=== PATIENT | female | born 1980 | race Caucasian/White ===

== ENCOUNTER → 2018-03-21 16:40 | Outpatient (CLI) | payer OTHER, SELFPAY | PROVIDERS: Family Provider Internal Medicine; PCP Internal Medicine; Referring Provider Obstetrics & Gynecology; Visit Provider Obstetrics & Gynecology | DX: Z12.4 Encounter for screening for malignant neoplasm of cervix (principal) | CPT/HCPCS: 88175; G0145 ==

== ENCOUNTER → 2018-05-18 12:02 | Outpatient (CLI) | payer OTHER, SELFPAY ==
--- OUTSIDE RECORDS SUMMARY | 2018-07-04 07:18 | XMS RPT_ITS ---
:1980 Author Organization [facility] Support Name Relationship Address Phone CODY BAILEY Unavailable [address] + [place] [id number] SIMON DENNIS Unavailable [address] + [address]available [address] + [place] [address] CODY BAILEY Unavailable [address] + [place] [id number] SIMON DENNIS Unavailable [address] + [address]available [address] + [place] [address] CODY BAILEY Unavailable [address] + [place] [id number] SIMON DENNIS Unavailable [address] + [address] Unavailable [address] + [place] [address] CODY BAILEY Unavailable [address] + [place] [id number] SIMON DENNIS Unavailable [address] + [address] Unavailable [address] + [place] [address] SIMON DENNIS Unavailable [address] + [address] Unavailable [address] + [place] [address] SIMON DENNIS Unavailable [address] + [address] Unavailable [address] + [place] [address] MILAN SEXTON Unavailable . + [place] [address] [facility] Unavailable [address] + [place] [address] Care Team Providers Name Role Phone Belkys, Enma Attending Unavailable Elmer Russell Primary Care Unavailable Marcanthony, Shanelle Attending Unavailable Marcanthony, Shanelle Referring Unavailable ZARRABI, ENMA Primary Care Unavailable Marcanthony, Shanelle Attending Unavailable Marcanthony, Shanelle Referring Unavailable ZARRABI, ENMA Primary Care Unavailable Marcanthony, Shanelle Consulting Unavailable Marcanthony, Shanelle Attending Unavailable ASSESSMENT, HEALTH RISK Attending Unavailable ASSESSMENT, HEALTH RISK Referring Unavailable ZARRABI, ENMA Primary Care Unavailable Marcanthony, Shanelle Attending Unavailable Marcanthony, Shanelle Referring Unavailable ZARRABI, ENMA Primary Care Unavailable Mariangel Jordan Attending Unavailable ZARRABI, ENMA Referring Unavailable Marcanthony, Shanelle Attending Unavailable Marcanthony, Shanelle Referring Unavailable ZARRABI, ENMA Primary Care Unavailable PROBLEMS PROBLEMS DATE TYPE CONDITION / CODE ATTENDING STATUS SOURCE 05/25/2018 Unknown G89.18 - Other acute Herber, Active [place] postprocedural pain [facility] / G89.18(ICD-10) Hospital Repository 03/21/2018 Unknown Z12.4 - Encounter Herber Active [place] for screening for [facility] malignant neoplasm Hospital of cervix / Repository Z12.4(ICD-10) 03/21/2018 Unknown Z12.31 - Encounter Herber Active [place] for screening [facility] mammogram for Hospital malignant neoplasm Repository of breast / Z12.31(ICD-10) 03/21/2018 Unknown Z01.411 - Encounter Herber Active [place] for gynecological [facility] examination Hospital (general) (routine) Repository with abnormal findings / Z01.411(ICD-10) 03/21/2018 Unknown Z68.34 - Body mass Herber Active [place] index (BMI) [facility] 34.0-34.9, adult / Hospital Z68.34(ICD-10) Repository PROCEDURES PROCEDURES No Procedure Records FoundRESULTS RESULTS ANTIQUER OFFICE VISIT Observed: 06/08/2018 Status: F Source: BERTHA REPORT 10:14 [facility] REPOSITORY [facility] [address] [place] [address] OFFICE VISIT Date of Service: 06/08/18 MR#: [id number] Acct: [id number] Name: MARVA SEXTON Rep #: [id number] : 1980 Provider: MARCELO Jordan Age/Sex: 38/F Location: [facility] Status: Signed Intake Vital Signs06/08/18 Body Mass Index (BMI) 34.0 06/08/18 Weight: 200 lb 4 oz 06/08/18 Blood Pressure 112/68 Intake Visit Reasons: 2 WK POST OP Hand Carver Required: No Is patient in pain?: No Allergies Penicillins Allergy (Verified 06/08/18 09:58) Unknown Medications Naproxen [Naprosyn] 250 - 500 mg PO Q8H PRN PRN #30 tab 05/25/18 [Rx Confirmed 06/08/18] Is last menstrual period known: No Post menopausal: No Patient : No : No PFSH Medical History Abnormal Pap smear of cervix (Acute) Surgical History H/O LEEP (Acute 2002) History of conization of cervix (Acute 2003) Hx of cholecystectomy (Acute 2008) Family History Father TIA (transient ischemic attack) Hypertension Mother Cancer lung Brother Heart disease Social History adopted: No household members: children housing: house number of children: 1 current occupational status: employed current occupation: [employer] current occupational exposures/hazards: Yes pets and animals: No history of recent travel: No Smoking Status: Former smoker second hand exposure: No alcohol intake: current alcohol intake frequency: holidays/special occasions only substance use type: does not use seatbelt use: always do you feel safe at home: Yes additional social history: boyfriend- Cody HPI 2 WK POST OP: Details: MARVA SEXTON is a 38 year old who presents for 2 week post op BTO 05/2018 with . Doing well. No issues with bowel, bladder habits. No pain Pregancy History 1 Elective abortions Hx Para 1 Spontaneous abortions Past Pregnancies Del. DatName GA/WeeksOutcome [facility] LgAnesthesD LocaProviderFOB e ht en th ia tn Unknown 12/13/19 02- Ridge y Exam Const General: cooperative, no acute distress Nutritional Appearance: well nourished Orientation: oriented x3 GI Palpation: soft, nontender, other (incisions healed. Slight ecchymotic just below umbilicus) Assessment AND Plan Problems 1. Postop check Z09 Plan Routine care Return to work letter RTO 4 weeks Coding Level of Care Code No Charge Diagnoses Postop check Z09 06/08/18 1014 <Electronically signed by Mariangel IDCKERSON> Date Mariangel DICKERSON Cosigner Signature: Date (if applicable) CC: OPERATIVE REPORT Observed: 05/25/2018 Status: F Source: [place] 8:09 AM [facility] REPOSITORY [facility] Medical Records Department [address] [place] [id number] Operative Report 05/25/18 0734 MR#: [id number] Acct: [id number] Name: MARVA SEXTON April Rep #: [id number] : 1980 38 From: Shanelle Craven MD PCP: ENMA RIZVI Status: REG [facility] Y Location: [place] [address] Problem List (1) Sterilization Status: Acute Report of Operation Date of Procedure: 05/25/18 Pre-Operative Diagnosis: sterilization Post-Operative Diagnosis: same Surgery/Procedure Performed:: laparoscopic bilateral salpingectomy Description of Surgical Findings:: nl uterus tubes ovaries glass technologist: Natalie Gayle Type of Anesthesia:: General Special Medications: none Specimen's removed: tubes Drains: calderon Estimated Blood Loss (mL): minimal Fluids Replaced: crystalloid Description of Procedure: Patient was taken in the operating room and was placed under general anesthesia was prepped and draped in normal sterile fashion in the dorsal lithotomy position. Bladder was drained of clear urine and SCDs were on preoperatively. Uterus was sounded and a uterine manipulator was placed after dilating. Attention was then paid to the abdominal portion of the procedure and the umbilicus was elevated with towel clamps and injected with Marcaine and after a 5 mm incision was made and the Veress needle was entered into the abdomen confirmed to be intra-abdominal with a low opening pressure of less than 5 mmHg. Abdomen was insufflated with CO2 gas and a 5 mm optical trocar was placed under direct visualization. A left lower quadrant 5 mm port and a 5 mm port suprapubically replaced under direct visualization. Uterus was well visualized and bilateral fallopian tubes identified and bilateral tubes were elevated and transecting across the mesosalpinx and the attachment to the uterine corpus bilaterally the tubes were removed without complication. Excellent hemostasis was noted. Fallopian tubes were removed through the lower port sites without complication. Liver and upper abdomen were visualized notably within normal limits and no other gross abnormalities were seen in the abdomen. All instruments removed from the abdomen after gas was desufflated. Port sites were closed with 3-0 Monocryl Steri's and op sites were applied. All instruments removed from the vagina and patient was awoken and taken recovery in stable condition. Grafts/Implants Used: none - Complications none - Admit VTE Documentation VTE Present on Admission: No 05/25/18 0809 <Electronically signed by Shanelle Craven MD> Date Shanelle Craven MD CC: ENMA RIZVI; Shanelle Craven MD Signed DISCHARGE INSTRUCTION Observed: 05/25/2018 Status: F Source: BERTHA 7:49 AM [facility] REPOSITORY [facility] Medical Records Department [address] [place] [address] Instructions for Home/Discharge Instructions 05/25/18 0749 MR#: [id number] Acct: [id number] Name: MARVA SEXTON Rep #: [id number] : 1980 38 From: Shanelle Craven MD PCP: ENMA RIZVI Status: REG [facility] Discharge Diet: No Restrictions - Increase fluid intake for the next 48 hours. Discharge Activity: Return to Normal Activity, May Drive - when you are no longer taking narcotic pain medications., May Shower, May Take a Tub Bath - in 7 days Additional Activity Instructions:: Ambulate often the next week after surgery. Nothing in the vagina for 5 days. Call your doctor if your incision/area has: Continuous Slow Oozing, Sudden Increased Bleeding, Increased Pain/ Swelling, Increased Redness, Foul Smelling Discharge Call your doctor if you observe: Fever of 101 or Higher Allergies/Adverse Reactions: Allergies Penicillins Allergy (Verified 05/18/18 10:08) Unknown Medications to take at Discharge Naproxen [Naprosyn] 250 - 500 mg PO Q8H PRN PRN #30 tablet 05/25/18 Oxycodone HCl/Acetaminophen [Percocet 5-325] 1 - 2 tablet PO Q4H PRN PRN 7 Days #15 tablet 05/25/18 The following prescriptions were given: Oxycodone HCl/Acetaminophen [Percocet 5-325] 1 - 2 tablet PO Q4H PRN PRN 7 Days #15 tablet PRN Reason: Pain Naproxen [Naprosyn] 250 - 500 mg PO Q8H PRN PRN #30 tablet PRN Reason: MILD PAIN Primary Care Physician: Enma Rizvi [Primary Care Provider] - Test Results: Test results from this visit will be discussed in further detail at your follow-up appointment, if applicable. Please Follow Up With: Shanelle Craven MD - [phone] 05/25/18 0749 <Electronically signed by Shanelle Craven MD> Date Shanelle Craven MD CC: ENMA RIZVI HISTORY AND PHYSICAL Observed: 05/25/2018 Status: F Source: [place] EXAM 7:33 AM [facility] REPOSITORY [facility] Medical Records Department [address] [place] [address] History and Physical 05/25/18 0624 MR#: [id number] Acct: [id number] Name: MARVA SEXTON Rep #: [id number] : 1980 38 From: Shanelle Craven MD PCP: ENMA RIZVI Status: REG [facility] Y Location: [place] [address] Problem List (1) Sterilization Status: Acute History of Present Illness Date of Admission: 05/25/18 The patient is a 38 year old F desires sterilization. Past Medical History Medical History: Medical History (Last Reviewed 03/21/18 @ 10:18 by Yesenia Lzi) Abnormal Pap smear of cervix R87.619 Allergies Penicillins Allergy (Verified 05/18/18 10:08) Unknown Home Medications: Ambulatory Orders Medication Instructions Recorded NK 05/18/18 Surgical History: Surgical History (Last Reviewed 03/21/18 @ 10:18 by Yesenia Liz) H/O LEEP Onset Date: 2002 Z98.0 History of conization of cervix Onset Date: 2003 Z98. Hx of cholecystectomy Onset Date: 2008 Z90.49 Smoking Status: Former smoker Tobacco Use: Non-smoker Review of Systems Constitutional: Denies: Fever, Malaise Eyes: Denies: Blurred vision, Vision Change HEENT: Denies: Head Aches, Visual Changes Cardiovascular: Denies: Chest Pain, Palpitations Respiratory: Denies: Cough, Shortness of Breath, Wheezing Gastrointestinal: Denies: Abdominal Pain, Diarrhea, Nausea, Vomiting Genitourinary: Denies: Dysuria, Hematuria Musculoskeletal: Denies: Joint Pain, Muscle pain Skin: Denies: Lesions, Rash Neurological: Denies: Blurred vision, Focal weakness, Headaches Psychiatric: Denies: Anxiety, Depression Endocrine: Denies: Heat/ Cold Intolerance Hematologic/ Lymphatic: Denies: Easy Bruising, Easy Bleeding VTE Information - Inpt Only VTE Present on Admission: No Patient Problems: Active and Suspected Problems (Last Reviewed 03/21/18 @ 10:18 by Yesenia Liz) Sterilization (Acute) - Physical Exam General: Alert, Oriented x3, Cooperative HEENT: Atraumatic, PERRLA, EOMI, Normocephalic Neck: Supple, No JVD, Negative Carotid Bruits Lungs: Clear to auscultation, Normal air movement Cardiovascular: Regular rate, No murmurs Abdomen: Bowel Sounds Present, Soft, Non Tender Extremities: No edema, Capillary Refill Less than 3 Seconds Skin: No rashes, No breakdown Musculoskeletal: No Tenderness to Palpation of Joints or Extremities Neurological: Cranial nerves II-XII grossly intact Psych/Mental Status: Normal Affect, Appropriate Laboratory Tests Past 24 Hrs Urine Test Negative Assessment/Plan All Active Problems (Last Reviewed 03/21/18 @ 10:18 by Yesenia Liz) Sterilization (Acute) 38 yo desires sterilization plan laparoscopic bilateral salpingectomy. discussed surgical risks including risks of anesthesia, infection, bleeding, injury to bowel, bladder or blood vessels, and patient wishes to proceed with surgery. UPDATE- I have seen the patient and performed any clinically relevant updates to the history and physical exam. Shanelle Craven MD 05/25/18 0733 <Electronically signed by Shanelle Craven MD> Date Shanelle Craven MD Cosigner Signature: Date (if applicable) CC: ENMA RIZVI; Shanelle Craven MD Signed FALLOPIAN TUBES/STERILIZATION Observed: 05/25/2018 Status: F Source: [place] 7:30 AM [facility] REPOSITORY Patient: MARVA SEXTON : 1980 (38/F) Acct Num: [id number] Phys: Shanelle Craven MD Unit Num: [id number] Loc: [facility] Specimen: [id number] Received: 05/25/18919 Spec Type: FALL TUBES TISSUES 1 TISSUES: Fallopian tube GROSS DESCRIPTION Received is one container labeled with the patient's name and designated bilateral fallopian tubes. The specimen consists of two fallopian tubes with an average length of 7 cm and has an average diameter of 0.6 cm. Both fallopian tubes have normal fimbriated ends. No mass lesions are identified. Cruise Consultant sections are submitted in two cassettes as follows: 1 - one fallopian tube, 2 - the other fallopian tube. / AM:ilir 05/25/18 TC:4 CPT: 25460 x2 HEADER OPERATION: Laparoscopic salpingectomy PRE-OP DIAGNOSIS: Patient desires sterilization TISSUE SUBMITTED: Bilateral fallopian tubes MICROSCOPIC DESCRIPTION Slides are reviewed. MICROSCOPIC DIAGNOSIS Bilateral fallopian tubes, salpingectomy: Bilateral fallopian tubes including fimbrial ends, no pathologic diagnosis. SJ:ilir 05/26/18 Signed Aniceto Gonzalez MD 05/26/18 <signature on file> Performed By: #### PFALS #### [facility] [address] [place], [place], [address] TYPE AND SCREEN Collected: 05/25/2018 Status: F Source: BERTHA 6:00 AM [facility] REPOSITORY Order Comment: Reason for Type AND Screen/Red Cells: SURGERY TYPE CODE TESTS RESULT OUT OF RANGE REFERENCE UNITS LAB B10.0800 O Normal BLOOD TYPE GEL NEGATIVE LAB B100.4000 Normal Antibody NEGATIVE Screen Performed By: #### B101.7450 #### [facility] [address] [place], [place], [address] ,URINE Collected: 05/25/2018 Status: F Source: BERTHA 5:58 AM [facility] REPOSITORY Order Comment: Reason for Laboratory Test PREOP TYPE CODE TESTS RESULT OUT OF REFERENCE UNITS RANGE LAB L400.8000 Negative Normal HCGUQUAL Negative Result Comment: Very dilute urine specimens, as indicated by a low specific gravity, may not contain employee relations representative levels of hCG. If is still suspected, a first morning urine specimen should be collected 48 hours later and tested. Performed By: #### L400.7600 #### [facility] [address] [place], [address] CBC-COMPLETE BLOOD CNT Collected: 05/18/2018 Status: F Source: BERTHA NO DIFF 12:30 PM [facility] REPOSITORY TYPE CODE TESTS RESULT OUT OF RANGE REFERENCE UNITS LAB L100.1000 4.4-11.0 K/mm3 Normal WBC 7.4 LAB L100.1200 4.2-5.4 M/mm3 Normal RBC 4.62 LAB L100.1300 12.0-15.0 g/dl Normal HGB 13.1 LAB L100.1400 37-47 % Normal HCT 40.1 LAB L100.1500 81-99 fL Normal MCV 86.8 LAB L100.1600 27.0-32.0 pg Normal MCH 28.4 LAB L100.1700 32-36 g/gl Normal MCHC 32.7 LAB L100.1810 11.6-14.6 % Normal RDW CV 13.2 LAB L100.1820 35.1-43.9 fl Normal RDW SD 41.2 LAB L100.1900 150-450 K/mm3 Normal PLT 324 LAB L100.2000 6.2-12.0 fl Normal MPV 9.5 Performed By: #### L100.0500 #### [facility] [address] [place], [place], [id number] CBC-COMPLETE BLOOD CNT Collected: 05/18/2018 Status: F Source: BERTHA NO DIFF 12:30 PM [facility] REPOSITORY TYPE CODE TESTS RESULT OUT OF RANGE REFERENCE UNITS LAB L100.1000 4.4-11.0 K/mm3 Normal WBC 7.4 LAB L100.1200 4.2-5.4 M/mm3 Normal RBC 4.62 LAB L100.1300 12.0-15.0 g/dl Normal HGB 13.1 LAB L100.1400 37-47 % Normal HCT 40.1 LAB L100.1500 81-99 fL Normal MCV 86.8 LAB L100.1600 27.0-32.0 pg Normal MCH 28.4 LAB L100.1700 32-36 g/gl Normal MCHC 32.7 LAB L100.1810 11.6-14.6 % Normal RDW CV 13.2 LAB L100.1820 35.1-43.9 fl Normal RDW SD 41.2 LAB L100.1900 150-450 K/mm3 Normal PLT 324 LAB L100.2000 6.2-12.0 fl Normal MPV 9.5 Performed By: #### L100.0500 #### [facility] [address] [place], [place], [id number] ANTIQUER OFFICE VISIT Observed: 03/21/2018 Status: F Source: BERTHA REPORT 11:08 AM [facility] [address] [place] [address] OFFICE VISIT Date of Service: 03/21/18 MR#: [id number] Acct: [id number] Name: MARVA SEXTON Rep #: [id number] : 1980 Provider: Shanelle Craven MD Age/Sex: 38/F Location: [facility] Status: Signed Intake Vital Signs03/21/18 Height 5 ft 4 in 03/21/18 Weight: 202 lb 03/21/18 Body Mass Index (BMI) 34.7 03/21/18 Blood Pressure 112/68 Intake Visit Reasons: NEW annual, discuss tubal ligation Hand Carver Required: No Is patient in pain?: No Allergies Penicillins Allergy (Verified 03/21/18 10:11) Unknown Medications NK 03/21/18 [History Confirmed 03/21/18] Is last menstrual period known: Yes Last Menstral Period: 03/10/18 Post menopausal: No Patient : No : No [facility] Medical History Abnormal Pap smear of cervix (Acute) Surgical History H/O LEEP (Acute 2002) History of conization of cervix (Acute 2003) Hx of cholecystectomy (Acute 2008) Family History Father TIA (transient ischemic attack) Hypertension Mother Cancer lung Brother Heart disease Social History adopted: No household members: children housing: house number of children: 1 current occupational status: employed current occupation: [employer] current occupational exposures/hazards: Yes pets and animals: No history of recent travel: No Smoking Status: Current every day smoker second hand exposure: No alcohol intake: current alcohol intake frequency: holidays/special occasions only substance use type: does not use seatbelt use: always do you feel safe at home: Yes additional social history: boyfriend- Cody Pregancy History 1 Elective abortions Hx Para 1 Spontaneous abortions Past Pregnancies Del. DatName GA/WeeksOutcome Route [facility] [place] LgAnesthesDel LocaProviderFOB e ht en ia tn Unknown 12/13/19 02- Ridge y HPI NEW annual, discuss tubal ligation: Details: MARVA SEXTON is a 38 year old who presents for annual exam. she is wanting permanent control. she has used nuvaring in the past. Last PAP: 2016 normal History of abnormal PAP: leep [address] parker Female Reproductive History Last Menstral Period: 03/10/18 Cycle Length: 21-35 Bleeding Duration: 5 Control Method: condoms Questions: Metorrhagia: No, Sexually active: Yes, Dyspareunia: No, PCB: No Menopausal Symptoms: No hot flashes, No night sweats, No weight change, No mood changes, No difficulty concentrating, No sleep problems, No change in libido ROS Const Constitutional: Denies night sweats Cardio Card: Denies chest pain Resp Resp: Denies dyspnea or cough GI GI: Reports as per HPI; denies bloating, abdominal pain, constipation, vomiting or nausea : Denies hot flashes or nipple discharge Skin Skin/Breast: Denies breast pain, breast skin changes, nipple discharge, breast lump or changing lesions Psych Psych: Denies difficulty concentrating or change in sex drive Exam Const General: cooperative, healthy appearing, comfortable, no acute distress, well developed, well groomed [facility] Head: normal to inspection, normocephalic Ears: hearing grossly normal bilaterally, external ears normal Nose: external nose normal Face and sinus: normal facial exam Neck Neck: normal visual inspection, full ROM, no lymphadenopathy Thyroid: thyroid normal Chest Chest palpation AND inspection: normal inspection of the chest Breast inspection: normal inspection of the breasts, normal inspection of the axillae Breast palpation: normal palpation of the breasts, normal palpation of the axillae, no axillary lymphadenopathy Resp Effort AND Inspection: normal respiratory effort GI Inspection: normal to inspection, non-distended Palpation: no guarding, soft, no hepatosplenomegaly General: bladder normal to palpation External Female Exam: normal external appearance, normal appearance of the urethra, no lesions Urethra: normal appearance of the urethra, normal palpation Speculum Exam - Vagina: normal appearance of the vagina, normal vaginal discharge Speculum Exam - Cervix: normal appearance of the cervix, no cervical discharge, no lesions, nontender Bimanual Exam- Vagina AND Uterus: No cervical tenderness, normal bimanual exam, uterine size normal, bladder normal to palpation, uterine mobility normal, uterine consistency normal, uterus non-tender, no cervical motion tenderness Bimanual Exam- Adnexa, other: normal adnexae, no adnexal masses, adnexae non-tender Skin General: no rashes or lesions noted Neuro General: alert, moves all extremities, no focal motor deficits Extrem General: no pedal edema, normal to inspection Psych Appearance: grossly normal Mental Status: mental status grossly normal Affect: normal affect Speech and Movement: speech and movement normal Attitude: cooperative Assessment AND Plan Problems 1. Encounter for gynecological examination with abnormal finding Z01.411 2. BMI 34.0-34.9,adult Z68.34 Plan Cervical cancer screenin normal Breast cancer screening: clinical start mamms next year STD prevention and contraceptive options including their risks, benefits, and alternatives were reviewed with the patient and she chooses: tubal ligation Encouraged maintenance of a healthy weight and active lifestyle and handout given. Calcium/vitamin D recommendations provided. Annual exam handout including recommendations for good health guidelines and basic screening information given. Problem list up to date, see problem list details for any additional plan information. follow up in one year for annual health maintenance exam or sooner if needed. Orders Orders: Coding Level of Care Code Off vis,new,prev 18-39yrs Diagnoses Encounter for gynecological examination with abnormal finding Z01.411 Gynecological examination findings: abnormal findings PRESENT BMI 34.0-34.9,adult Z68.34 03/21/18 1108 <Electronically signed by Shanelle Craven MD> Date Shanelle Craven MD Cosigner Signature: Date (if applicable) CC: PAP IG HPV APTIMA Collected: 03/21/2018 Status: F Source: BERTHA ,45 10:30 AM [facility] REPOSITORY Order Comment: CYTOLOGY INFORMATION: - CLINICAL INFORMATION: - DATE LMP/MENOPAUSE: 03/10/18 LMP - COLLECTION VIAL: Thin Prep Vial - SALES NEGOTIATOR SOURCE: CERVICAL - COLLECTION TECHNIQUE: CX BROOM ONLY Specimen Comment: [id number] Specimen Comment: Source.............Cervix Specimen Comment: LMP / Prev Treat...NEK=[id number] Specimen Comment: No. of containers..01 ThinPrep Vial TYPE CODE TESTS RESULT OUT OF RANGE REFERENCE UNITS LAB L7400.0800 . Normal DIAGN Comment Result Comment: UNSATISFACTORY FOR EVALUATION. LAB L7400.0900 . Normal ADEQ Comment Result Comment: Specimen processed and examined but unsatisfactory for evaluation of epithelial abnormality because of insufficient cellularity. LAB L7400.1300 . Normal RECOMM Comment Result Comment: Suggest follow up as clinically appropriate. LAB L7400.1400 . Normal PERFORM Comment Result Comment: Mago Barlow, Teletypewriter Installer (ASC) LAB L7400.1500 . Normal QC Comment REV Result Comment: Joy Ku, Supervisory Teletypewriter Installer (ASC) LAB L7400.2575 . Normal Test not TEST METHOD performed Result Comment: The Thin Prep(R) Implementation Coordinator was unable to read this specimen. Therefore a manual review was performed. LAB L7400.2600 . Normal . COMM LAB L7400.2700 . Normal PAPSMR Comment Result Comment: The Pap smear is a screening test designed to aid in the detection of premalignant and malignant conditions of the uterine cervix. It is not a diagnostic procedure and should not be used as the sole means of detecting cervical cancer. Both false-positive and false-negative reports do occur. LAB L7400.2760 Negative Normal HPV APTIMA, Negative HR Result Comment: This test detects fourteen high-risk HPV types (16/18/31/33/35/39/45/ 51/52/56/58/59/66/68) without differentiation. Performed at: [address] [id number] Order Manager: Regina Reed MD, Phone: [phone] Performed at: =[address] [id number] Order Manager: Regina Reed MD, Phone: [phone] Performed By: #### L7400.0280 #### [facility] (refer to report for specific site) refer to report for address and phone number URINALYSIS, EMPLOYEE Collected: 02/14/2018 Status: F Source: [place] 11:07 AM [facility] REPOSITORY TYPE CODE TESTS RESULT OUT OF RANGE REFERENCE UNITS LAB L400.3000 Yellow COLOR Normal Yellow LAB L400.3050 Clear Normal CLARITY Clear LAB L400.3200 Normal mg/dl Normal GLUCOSE, UR Normal LAB L400.3300 Negative mg/dL Normal BILIRUBIN URINE Negative LAB L400.3400 Negative mg/dl Normal KETONE UR Negative LAB L400.3465 1.002-1.030 Normal SP.GR. DIPSTX 1.010 LAB L400.3550 5.0 - 8.0 pH UR Normal 8.0 LAB L400.3600 Negative mg/dl PROT Normal DIPSTX Negative LAB L400.3700 Normal mg/dl Normal UROBILI Normal LAB L400.3750 Negative Normal NITRITE UR Negative LAB L400.3780 Negative /ul Normal OCCULT BLOOD-UR Negative LAB L400.3800 Negative /ul LEUK Normal ESTERASE Negative Performed By: #### L400.0100 #### [facility] [address] [place], [address] CBC, EMPLOYEE Collected: 02/14/2018 Status: F Source: [place] 11:07 [facility] REPOSITORY TYPE CODE TESTS RESULT OUT OF RANGE REFERENCE UNITS LAB L100.1000 4.4-11.0 K/mm3 Normal WBC 5.4 LAB L100.1200 4.2-5.4 M/mm3 Normal RBC 4.51 LAB L100.1300 12.0-15.0 g/dl Normal HGB 13.0 LAB L100.1400 37-47 % Normal HCT 39.5 LAB L100.1500 81-99 fL Normal MCV 87.6 LAB L100.1600 27.0-32.0 pg Normal MCH 28.8 LAB L100.1700 32-36 g/gl Normal MCHC 32.9 LAB L100.1810 11.6-14.6 % Normal RDW CV 13.1 LAB L100.1820 35.1-43.9 fl Normal RDW SD 41.4 LAB L100.1900 150-450 K/mm3 Normal PLT 344 LAB L100.2000 6.2-12.0 fl Normal MPV 9.1 LAB L100.2110 47-70 % Normal NEUT% 54.0 LAB L100.2210 19-41 % Normal LY% 31.8 LAB L100.2310 0-10 % High MONO% 10.6 LAB L100.2410 0-5 % Normal EO% 2.6 LAB L100.2510 0-1 % Normal BASO% 0.6 LAB L100.2620 2.0-7.7 X10 3/uL Normal Absolute Neut 2.9 LAB L100.2720 0.83-4.51 X10 3/ul Normal Absolute Lymph 1.71 Performed By: #### L100.0200 #### [facility] [address] [facility] [place], [place], [id number] NICOTINE URINE DRUG Collected: 02/14/2018 Status: F Source: [place] SCREEN 11:07 AM [facility] REPOSITORY TYPE CODE TESTS RESULT OUT OF RANGE REFERENCE UNITS LAB L505.6250 TO BE Normal CONFIRMED Result Comment: CONFIRMATORY TESTING FOR ALL POSITIVE URINE DRUG SCREEN RESULTS WILL ONLY BE SENT OUT UPON PHYSICIAN ORDER. The results of Urine Drug Screen methods provide only preliminary analytical test results. A more specific alternate chemical method must be used in order to obtain a confirmed analytical result. Gas chromatography/mass spectrometery (GC/MS) is the preferred confirmatory method. Clinical consideration and professional judgement should be applied to any drug of abuse test result, particularly when preliminary positive results are used. LAB L505.6270 <200 ng/mL Normal COT DRG Negative SCREEN Result Comment: Cotinine is the first-stage metabolite of Nicotine. Performed By: #### L505.6240 #### [facility] [address] [facility] [place], [place], [address] EMPLOYEE PROFILE Collected: 02/14/2018 Status: F Source: [place] 11:07 AM [facility] REPOSITORY TYPE CODE TESTS RESULT OUT OF RANGE REFERENCE UNITS LAB L501.0100 74-106 mg/dL Normal GLU 81 Result Comment: Please note revised GLUCOSE reference range effective 2017. LAB L501.1000 7-18 mg/dL Normal BUN 7 LAB L501.1100 0.55-1.02 mg/dL Normal CREAT,SERUM 0.74 Result Comment: The validity of the calculated GFR AND GFRAA in patients over 70 years has not been determined. Clinical correlation is essential. LAB L501.1110 >60 mL/min Normal EST GFR 94 Result Comment: Non- GFR Calc LAB L501.1115 >60 mL/min Normal EST GFR - AA 113 Result Comment: GFR Calc LAB L501.1300 10-20 RATIO Low BUN/CRE 9.5 LAB L501.1400 2.6-6.0 mg/dL Normal URIC 3.3 Result Comment: The drugs N-Acetylcysteine and Metamizole may falsely depress this assay. LAB L501.1500 6.4-8.2 g/dL Normal T PROT 6.9 LAB L501.1800 3.2-5.0 g/dL Normal ALB 3.6 LAB L501.1950 2.2-4.2 g/dL Normal GLOB 3.3 LAB L501.2000 0.9-2.4 RATIO Normal A/G 1.1 LAB L501.2200 8.5-10.1 mg/dL Normal CA 8.6 LAB L501.2300 2.5-4.9 mg/dL Normal PHOS 2.8 LAB L501.4100 15-37 U/L Low AST 14 LAB L501.4305 45-117 U/L Normal ALK P 63 LAB L501.4405 13-56 U/L Normal ALT 19 LAB L501.4600 0.20-1.00 mg/dL Normal T BILI 0.50 LAB L501.4700 0.00-0.30 mg/dL Normal D BILI 0.16 LAB L501.4900 200 mg/dL Normal CHOL 139 Result Comment: <200 mg/dL Desirable 200-240 mg/dL Borderline >240 mg/dL High Risk LAB L501.5000 mg/dL Normal TRIG 61 Result Comment: The drugs N-Acetylcysteine and Metamizole may falsely depress this assay. Serum Triglycerides Reference Interval Normal <150 mg/dL Borderline high 150 - 199 mg/dL High 200 - 499 mg/dL Very High > or = 500 mg/dL LAB L501.5300 136-145 mmol/L Normal NA 144 LAB L501.5600 3.5-5.1 mmol/L Normal K 4.5 LAB L501.5900 98-107 mmol/L Normal CL 107 LAB L501.6100 21.0-32.0 mmol/L Normal CO2 28.0 LAB L501.6200 5-15 Normal 9 GAP LAB L501.6400 mg/dL Normal HDL 54 Result Comment: The drugs N-Acetylcysteine and Metamizole may falsely depress this assay. Reference Range HDL <40 mg/dL Low HDL Cholesterol HDL >or= 60 mg/dL High HDL Cholesterol LAB L501.6475 Normal CHOL:HDL 2.60 LAB L501.6500 0-130 mg/dL Normal LDL 73 LAB L501.6600 5-40 mg/dL Normal VLDL 12 LAB L504.2610 84-246 U/L Normal LDH 147 Performed By: #### L500.2900 #### [facility] [address] [place], [address] ALLERGIES ALLERGIES DATE TYPE / CODE NAME / CODE REACTION SEVERITY SOURCE 06/08/2018 Drug Penicillins/ Unknown Unknown [facility] Allergy/4160 [id number]( Hospital 09353(SNOMED XNORM) Repository CT) ENCOUNTERS ENCOUNTERS ADMIT/DISCHARGE ACCOUNT NUMBER ADMITTING ENCOUNTER LOCATION SOURCE CLASS 06/08/2018/06/08/19 [id number] Ambulatory BMSBuilding: [place] 19 BMS.[facility] Repository 05/25/2018 [id number] Ambulatory BMSBuilding: [place] BMS.CF.[facility] Repository 05/25/2018/05/25/20 [id number] Ambulatory [address] ding:SDCRoom Repository : AC04 05/18/2018 [id number] Ambulatory [facility] ding:ED Repository 03/21/2018 [id number] Ambulatory [facility] ding:LABSPEC Repository 03/21/2018/03/21/20 [id number] Ambulatory BMSBuilding: [place] 18 BMS.[facility] Repository 02/21/2018/02/22/20 [id number] Ambulatory [address] [facility] IMRoom: Room 10 02/14/2018 [id number] Ambulatory [facility] ding:EMPH Repository PAYERS PAYERS ENCOUNTER GUARANTOR PAYER SUBSCRIBER SOURCE 06/08/2018 MARVA A Primary Insurance:[facility] MARVA Chen [place] [id number] [facility] SIBURTDOB: [address], [place] Number: Repository [address]Kqf: 419 [id number] [phone] () Date:5812-79-67TV [address] [address], [place] [address]ZO: CHECK WEBSITE 06/08/2018 Secondary NOT GIVENUNK [place] Insurance:SELF PAY [facility] Number: Effective Repository Date:2018-06-08 05/25/2018 MARVA A Primary Insurance:[facility] MARVA Chen [place] [id number] [facility] SIBURTDOB: [address], [place] Number: Repository [id number]: 419 [id number] [phone] () Date:8755-59-89YC [address] [address], [place] [address]XC: CHECK WEBSITE 05/25/2018 Secondary NOT GIVENUNK [place] Insurance:SELF PAY [facility] Number: Effective Repository Date:2018-05-25 05/25/2018 MARVA A Primary Insurance:[facility] MARVA Chen [place] [id number] [facility] SIBURTDOB: [address] Number: Repository [id number]: 419 [id number] [phone] () Date:9105-24-69GR [address] [address], [place] [address]OD: CHECK WEBSITE 05/25/2018 Secondary NOT GIVENUNK [place] Insurance:SELF PAY [facility] Number: Effective Repository Date:2018-03-23 05/18/2018 MARVA A Primary Insurance:[facility] MARVA Chen [place] [id number] [facility] SIBURTDOB: [address] Number: Repository [id number]: [phone] [id number] [phone] () Date:6811-95-63XK [address] [address], [place] [address]CX: CHECK WEBSITE 05/18/2018 Secondary NOT GIVENUNK [place] Insurance:SELF PAY [facility] Number: Effective Repository Date:2018-05-18 03/21/2018 MARVA [place] Primary Insurance:[facility] MARVA Chen [place] [id number] [facility] SIB[facility]: [facility] 0768-40-[place] Number: Repository [id number]: 419 [id number] [phone] () Date:5194-88-98GT [address] [address], [place] [address]ML: CHECK WEBSITE 03/21/2018 Secondary NOT GIVENUNK [place] Insurance:SELF PAY [facility] Number: Effective Repository Date:2018-03-21 03/21/2018 MARVA A Primary Insurance:[facility] MARVA Chen [place] [id number] [facility] SIBURTDOB: [facility] 8717[place]85-[place] Number: Repository [address]Umn: 419 [id number] [phone] () Date:7961-58-61AR [address] [address], [place] [address]HJ: CHECK WEBSITE 03/21/2018 Secondary NOT GIVENUNK [place] Insurance:SELF PAY [facility] Number: Effective Repository Date:2017-12-29 02/14/2018 MARVA [id number] Primary NOT GIVENUNK [place] Insurance:SELF PAY [facility] [address]Gtm: ([phone]) Number: Effective Repository [phone] () Date:2018-02-14
== END ==
PROVIDERS: Family Provider Internal Medicine; PCP Internal Medicine; Referring Provider Obstetrics & Gynecology; Visit Provider Obstetrics & Gynecology
DX: Z53.9 Procedure and treatment not carried out, unspecified reason (principal)

== ENCOUNTER 2018-05-25 05:47 | Day surgery (SDC) | payer OTHER, SELFPAY ==
[2018-05-18 12:58] LABS: Hematocrit 40.1 % (37-47); Hemoglobin 13.1 g/dl (12.0-15.0); Mean Corp Hgb Conc 32.7 g/gl (32-36); Mean Corpuscular Hgb 28.4 pg (27.0-32.0); Mean Corpuscular Volume 86.8 fL (81-99); Mean Platelet Vol. 9.5 fl (6.2-12.0); Platelet Count 324 K/mm3 (150-450); RBC Distribution Width CV 13.2 % (11.6-14.6); RBC Distribution Width SD 41.2 fl (35.1-43.9); Red Blood Count 4.62 M/mm3 (4.2-5.4); White Blood Count 7.4 K/mm3 (4.4-11.0)
[2018-05-18 13:00] LABS: Scan Indicated on CBC? Y/N NO
[2018-05-25 06:17] LABS: Internal QC Validated? YES +Cl - CLEAR BKGD; Pregnancy, Urine Negative Negative
--- NOTE | 2018-05-25 06:24 | PCM.HP.STD ---
Problem List (1) Sterilization Status: Acute History of Present Illness Date of Admission: 05/25/18 The patient is a 38 year old F desires sterilization. Past Medical History Medical History: Medical History (Last Reviewed 03/21/18 @ 10:18 by Yesenia Liz) Abnormal Pap smear of cervix R87.619 Allergies Penicillins Allergy (Verified 05/18/18 10:08) Unknown Home Medications: Ambulatory Orders Medication Instructions Recorded NK 05/18/18 Surgical History: Surgical History (Last Reviewed 03/21/18 @ 10:18 by Yesenia Liz) H/O LEEP Onset Date: ~2002 Z98.890 History of conization of cervix Onset Date: ~2003 Z98.890 Hx of cholecystectomy Onset Date: ~2008 Z90.49 Smoking Status: Former smoker Tobacco Use: Non-smoker Review of Systems Constitutional: Denies: Fever, Malaise Eyes: Denies: Blurred vision, Vision Change HEENT: Denies: Head Aches, Visual Changes Cardiovascular: Denies: Chest Pain, Palpitations Respiratory: Denies: Cough, Shortness of Breath, Wheezing Gastrointestinal: Denies: Abdominal Pain, Diarrhea, Nausea, Vomiting Genitourinary: Denies: Dysuria, Hematuria Musculoskeletal: Denies: Joint Pain, Muscle pain Skin: Denies: Lesions, Rash Neurological: Denies: Blurred vision, Focal weakness, Headaches Psychiatric: Denies: Anxiety, Depression Endocrine: Denies: Heat/ Cold Intolerance Hematologic/ Lymphatic: Denies: Easy Bruising, Easy Bleeding VTE Information - Inpt Only VTE Present on Admission: No Patient Problems: Active and Suspected Problems (Last Reviewed 03/21/18 @ 10:18 by Yesenia Liz) Sterilization (Acute) - Physical Exam General: Alert, Oriented x3, Cooperative HEENT: Atraumatic, PERRLA, EOMI, Normocephalic Neck: Supple, No JVD, Negative Carotid Bruits Lungs: Clear to auscultation, Normal air movement Cardiovascular: Regular rate, No murmurs Abdomen: Bowel Sounds Present, Soft, Non Tender Extremities: No edema, Capillary Refill Less than 3 Seconds Skin: No rashes, No breakdown Musculoskeletal: No Tenderness to Palpation of Joints or Extremities Neurological: Cranial nerves II-XII grossly intact Psych/Mental Status: Normal Affect, Appropriate Laboratory Tests Past 24 Hrs 05/25/18 05:58 Urine Test Negative Assessment/Plan All Active Problems (Last Reviewed 03/21/18 @ 10:18 by Yesenia Liz) Sterilization (Acute) 38 yo desires sterilization plan laparoscopic bilateral salpingectomy. discussed surgical risks including risks of anesthesia, infection, bleeding, injury to bowel, bladder or blood vessels, and patient wishes to proceed with surgery. UPDATE- I have seen the patient and performed any clinically relevant updates to the history and physical exam. Shanelle Craven MD
[2018-05-25 06:29] VITALS: BP 104/72; PULSE 80; RESP 16; TEMP 37.4; O2SAT 100; BMI 34.0
--- NOTE | 2018-05-25 07:30 | FALS_PTH ---
PATIENT: MARVA SEXTON [place] [facility] [place][id number] AGE/SX: 38/F ROOM: RE05/25/[address]: Dr. Shanelle Craven MD : 1980 BED: DIS: 05/25/2018 SPEC #: [id number] RECD: 05/25/18 09:20 STATUS: KALLIE RUDY #: [id number] JAMIA: 05/25/18 07:[address]: Shanelle Craven DEPT: SURGICAL PATHOLOGY RECD BY: Karlos Auguste ENTERED: 05/25/18 12:49 SP TYPE: FALL TUBES OTHR DR: Dr. Enma Rizvi MD Tissues: Fallopian tube Procedures: Surgery Specimen Level II HEADER OPERATION: Laparoscopic salpingectomy PRE-OP DIAGNOSIS: Patient desires sterilization TISSUE SUBMITTED: Bilateral fallopian tubes MICROSCOPIC DIAGNOSIS Bilateral fallopian tubes, salpingectomy: Bilateral fallopian tubes including fimbrial ends, no pathologic diagnosis. SJ:ilir 05/26/18 MICROSCOPIC DESCRIPTION Slides are reviewed. GROSS DESCRIPTION Received is one container labeled with the patient's name and designated bilateral fallopian tubes. The specimen consists of two fallopian tubes with an average length of 7 cm and has an average diameter of 0.6 cm. Both fallopian tubes have normal fimbriated ends. No mass lesions are identified. [employer] sections are submitted in two cassettes as follows: 1 - one fallopian tube, 2 - the other fallopian tube. / AM:ilir 05/25/18 TC:4 CPT: 66168 x2
--- NOTE | 2018-05-25 07:42 | OP.PCM_ITS ---
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 Bladder was drained of clear urine and SCDs were on preoperatively. Uterus was sounded and a uterine manipulator was placed after dilating. Attention was then paid to the abdominal portion of the procedure and the umbilicus was elevated with towel clamps and injected with Marcaine and after a 5 mm incision was made and the Veress needle was entered into the abdomen confirmed to be intra-abdominal with a low opening pressure of less than 5 mmHg. Abdomen was insufflated with CO2 gas and a 5 mm optical trocar was placed under direct visualization. A left lower quadrant 5 mm port and a 5 mm port suprapubically replaced under direct visualization. Uterus was well visualized and bilateral fallopian tubes identified and bilateral tubes were elevated and transecting across the mesosalpinx and the attachment to the uterine corpus bilaterally the tubes were removed without complication. Excellent hemostasis was noted. Fallopian tubes were removed through the lower port sites without complication. Liver and upper abdomen were visualized notably within normal limits and no other gross abnormalities were seen in the abdomen. All instruments removed from the abdomen after gas was desufflated. Port sites were closed with 3-0 Monocryl Steri's and op sites were applied. All instruments removed from the vagina and patient was awoken and taken recovery in stable condition. Grafts/Implants Used: none - Complications none - Admit VTE Documentation VTE Present on Admission: No
--- NOTE | 2018-05-25 07:49 | DCINST_ITS ---
Discharge Diet: No Restrictions - Increase fluid intake for the next 48 hours. Discharge Activity: Return to Normal Activity, May Drive - when you are no longer taking narcotic pain medications., May Shower, May Take a Tub Bath - in 7 days Additional Activity Instructions:: Ambulate often the next week after surgery. Nothing in the vagina for 5 days. Call your doctor if your incision/area has: Continuous Slow Oozing, Sudden Increased Bleeding, Increased Pain/ Swelling, Increased Redness, Foul Smelling Discharge Call your doctor if you observe: Fever of 101 or Higher Allergies/Adverse Reactions: Allergies Penicillins Allergy (Verified 05/18/18 10:08) Unknown Medications to take at Discharge Naproxen [Naprosyn] 250 - 500 mg PO Q8H PRN PRN #30 tablet 05/25/18 Oxycodone HCl/Acetaminophen [Percocet 5-325] 1 - 2 tablet PO Q4H PRN PRN 7 Days #15 tablet 05/25/18 The following prescriptions were given: Oxycodone HCl/Acetaminophen [Percocet 5-325] 1 - 2 tablet PO Q4H PRN PRN 7 Days #15 tablet PRN Reason: Pain Naproxen [Naprosyn] 250 - 500 mg PO Q8H PRN PRN #30 tablet PRN Reason: MILD PAIN Primary Care Physician: Enma Rizvi [Primary Care Provider] - Test Results: Test results from this visit will be discussed in further detail at your follow- up appointment, if applicable. Please Follow Up With: Shanelle Craven MD - [phone]
[2018-05-25] MEDS: Bupivacaine 0.25% 30 ML Vial (07:51)
[2018-05-25 08:30] VITALS: BP 104/72; BP 117/78; PULSE 96; RESP 16; TEMP 36.7; O2SAT 100
[2018-05-25 08:45] VITALS: BP 104/72; BP 115/70; PULSE 79; RESP 16; O2SAT 96
[2018-05-25 09:00] VITALS: BP 104/72; BP 112/75; PULSE 80; RESP 16; O2SAT 98
[2018-05-25 09:12] VITALS: BP 104/72; BP 110/75; PULSE 77; RESP 16; TEMP 36.6; O2SAT 98
[2018-05-25 10:32] VITALS: BP 104/72; BP 118/70; PULSE 76; RESP 16; TEMP 36.7; O2SAT 97
== END 2018-05-25 10:36 | disposition home or self-care (01) ==
LOC: SDC 05:48 → AC 05:49
PROVIDERS: Anesthesiology; Family Provider Internal Medicine; PCP Internal Medicine; Referring Provider Obstetrics & Gynecology; Visit Provider Obstetrics & Gynecology
PROC: (CPT 58661; principal; 2018-05-25 07:15)
DX: Z30.2 Encounter for sterilization (principal); J45.909 Unspecified asthma, uncomplicated; Z88.0 Allergy status to penicillin; Z87.891 Personal history of nicotine dependence; Z90.49 Acquired absence of other specified parts of digestive tract
CPT/HCPCS: 58661; 36415; 81025; 85027; 86850; 86900; 88302; J7120; J2405

== ENCOUNTER 2018-11-28 19:42 | Emergency (ER) | payer OTHER, SELFPAY ==
[2018-08-29 10:32] VITALS: BMI 34.0
[2018-11-28] VITALS (8 sets, daily range): BP systolic 96–131; BP diastolic 56–87; PULSE 81–215; RESP 13–24; TEMP 36.6; O2SAT 100; BMI 32.3
--- NOTE | 2018-11-28 19:44 | ED.RN ---
RN CALLED FOR EKG, NO OLD EKGS IN MUSE
[2018-11-28] MEDS: Adenosine 6 MG/2 ML Syringe IV (19:45)
--- NOTE | 2018-11-28 19:51 | EKG12_ITS ---
Test Reason : Blood Pressure : / mmHG Vent. Rate : 203 BPM Atrial Rate : 202 BPM P-R Int : 000 ms QRS Dur : 176 ms QT Int : 218 ms P-R-T Axes : 000 069 093 degrees QTc Int : 400 ms SVT with inferior lateral T-wave Inversion Abnormal ECG Confirmed by DARIN OCAMPO ([id number]), editor in chief newspaper LUCIANA EDDY ([id number]) on 11/29/2018 1:30:58 PM Referred By: TL Confirmed By:DARIN OCAMPO
--- NOTE | 2018-11-28 19:53 | RAD_ITS ---
STUDY: X-RAY CHEST REASON FOR EXAM: Female, 38 years old. Heart palpitations TECHNIQUE: AP portable COMPARISON: None. FINDINGS: The lungs are clear and expanded. There is no demonstrated pleural abnormality. Normal size heart. Normal mediastinum and carito. Normal visualized pulmonary arteries. Normal visualized aortic arch and descending thoracic aorta. Normal visualized thoracic spine. Normal visualized ribs, clavicles, and shoulders. There is no demonstrated abnormality of the visualized soft tissue structures of the upper abdomen. RAD/Chest 1 View (Portable) IMPRESSION: Normal x-ray examination of the chest. Electronically Signed: Juan Luis Jacoob MD at 20:11 EDT , Service support ,
--- NOTE | 2018-11-28 19:59 | ED.VIS.GEN ---
History of Present Illness Chief Complaint: Palpitations Informant: Patient Onset: Today Narrative: Sudden palpitations and lightheaded symptoms 45 minutes prior to arrival shortly after dinner. Chest discomfort palpitations. No recent illness or cough. For dinner he did not drink alcohol states 1 diet Coke. No nausea or vomiting. Reports has had intermittent symptoms similar for the past 2 months, longest lasting 3 hours that would be self-limiting. 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 She has tried Valsalva maneuvers with no relief. States it with spontaneous relief previously. Denies any past medical history. History of bilateral salpingectomy, cholecystectomy. Allergies to penicillin. Prior similar symptoms: Yes Past Medical History - Allergies and Home Meds Allergies/Adverse Reactions: Allergies Penicillins Allergy (Verified 11/28/18 19:52) Unknown Primary Care Physician: Enma Rizvi [Primary Care Provider] - Smoking Status: Former smoker Review of Systems General: Denies: Chills, Fever, Sweats Eyes: Denies: Visual changes - bilaterally, Diplopia ENT: Denies: Rhinorrhea, Sore throat Cardiovascular: Reports: Palpitations, Heart racing. Denies: Chest pain Respiratory: Denies: Dyspnea, Cough, Dyspnea on exertion Gastrointestinal: Denies: Abdominal pain, Nausea, Vomiting, Diarrhea, Melena, Hematochezia Genitourinary: Denies: Dysuria, Hematuria, Frequency Musculoskeletal: Denies: Back pain, Extremity Pain Skin: Denies: Rash, Wounds Neurological: Denies: Headache, Weakness, Numbness Physical Exam Vital Signs/Narrative: Vital Signs Temp Pulse Resp BP Pulse Ox 11/28/18 19:44 97.8 F 215 H 24 H 128/86 H 100 11/28/18 19:42 93 18 131/87 H 100 Inital Vital Signs reviewed: Yes General: Well nourished, Well developed, - - anxious Head: Normocephalic, Atraumatic Eyes: Perrl, EOMI ENT: Moist mucous membranes, No rhinorrhea Neck: Supple, Nontender Cardiovascular: Regular rhythm, No murmurs, Tachycardia Respiratory: No distress, CTA bilaterally, Chest nontender Abdomen: Soft, Nontender, Nondistended, Normal bowel sounds Back: Nontender, Normal Inspection Extremities: Nontender, No edema Skin: Normal color, No rash Neurological: Alert, Oriented x3, Cranial nerves II-XII grossly intact, Normal Strength, Normal Sensation Psychological: Normal affect, Normal Mood Diagnostic/Tx/Re-eval Chest X-Ray - ED: 1 View, Read by ED Physician, Read by Radiologist, No Acute Disease Abnormal Lab Results 11/28/18 11/28/18 11/28/18 19:45 19:45 19:45 WBC 10.2 RBC 5.20 Hgb 15.3 H Hct 44.7 MCV 86.0 MCH 29.4 MCHC 34.2 RDW 13.8 RDW Differential 43.1 Plt Count 330 MPV 9.3 Immature Gran % (Auto) 0.200 Neut % (Auto) 53.0 Lymph % (Auto) 32.0 Hutchinson % (Auto) 12.5 H Eos % (Auto) 1.7 Baso % (Auto) 0.6 Absolute Neuts (auto) 5.4 Absolute Lymphs (auto) 3.25 Total Counted Not Reportable Sodium 140 Potassium 3.0 L Chloride 108 H Carbon Dioxide 23.0 Anion Gap 9 BUN 11 Creatinine 0.88 Estim Creat Clear Calc 74.12 Est GFR (MDRD) Af Amer 92 Est GFR (MDRD) Non-Af 76 BUN/Creatinine Ratio 12.5 Glucose 70 L Calcium 9.4 Magnesium 2.1 Troponin I < 0.015 TSH 2.04 - EKG Initial EKG Interpretation: SVT - SVT rate of 203, ST depression in V3, V4, no elevations. - Medical Decision Making Patient presents EKG notes SVT heart rate 203, monitor go up to 220s. There was possible demand ischemia V3 V4 due to heart rate. Attempted Valsalva with no success. Due to her discomfort discuss chemical cardioversion, pads were placed, IV with fluids. 6 mg Identicard was given with noted conversion. She is monitored labs were evaluated, stable except for potassium 3.0 orally replaced. We will continue replacement for the next week. Magnesium normal. Troponin negative. TSH negative. Chest x-ray negative. She remained stable blood pressure systolic 100s this is her baseline. I discussed with covering microsoft exchange architect Dr. Moran, discuss her blood pressure and her rhythm, will start with low-dose metoprolol succinate 12.5 mg daily. Rhythm strip of conversion was kept for records. He will see her as an outpatient for echocardiogram and possible referral to EP for further testing. Signs and symptoms with medications were discussed. Follow-up instructions were given. ED Disposition - Plan for ED Patient: Disposition: Home or Assisted Living Diagnosis: Supraventricular tachycardia, Hypokalemia Prescriptions: Potassium Chloride [K-Dur] 20 meq PO DAILY #7 tablet Metoprolol Succinate [Toprol Xl] 12.5 mg PO DAILY #30 tab.er.24h Referrals: Enma Rizvi [Primary Care Provider] - Cyrus Moran MD [STAFF PHYSICIAN] - 5-7 Days
[2018-11-28 20:01] LABS: Absolute Lymphocyte Count 3.25 X10^3/ul (0.83-4.51); Absolute Neutrophil Count 5.4 X10^3/uL (2.0-7.7); Basophil# 0.06 X10^3/uL; Basophil% 0.6 % (0-1); Eosinophil# 0.17 X10^3/uL; Eosinophils% 1.7 % (0-5); Hematocrit 44.7 % (37-47); Hemoglobin 15.3 g/dl (12.0-15.0); Lymphocyte # 3.25 X10^3/ul (4.0); Mean Corp Hgb Conc 34.2 g/gl (32-36); Mean Corpuscular Hgb 29.4 pg (27.0-32.0); Mean Platelet Vol. 9.3 fl (6.2-12.0); Monocyte# 1.27 X10^3/uL; Monocyte% 12.5 % (0-10); Platelet Count 330 K/mm3 (150-450); RBC Distribution Width CV 13.8 % (11.6-14.6); RBC Distribution Width SD 43.1 fl (35.1-43.9); White Blood Count 10.2 K/mm3 (4.4-11.0)
[2018-11-28 20:03] LABS: POSITIVE COUNT NO; POSITIVE DIFFERENTIAL NO; POSITIVE MORPHOLOGY NO
[2018-11-28] MEDS: 0.9% Normal Saline 1,000 ML 150 ML IV (20:04)
[2018-11-28 20:19] LABS: Anion Gap 9 (5-15); BUN 11 mg/dL (7-18); BUN/Creat Ratio 12.5 RATIO (10-20); Calcium,Total 9.4 mg/dL (8.5-10.1); Chloride 108 mmol/L (98-107); Creatinine, Serum 0.88 mg/dL (0.55-1.02); EST Glomerular Filtration Rate 76 mL/min (>60); Est Glom Filt Rate - Afr Amer 92 mL/min (>60); Estimated Creatinine Clearance 74.12 ml/min; Glucose 70 mg/dL (74-106); Sodium Level 140 mmol/L (136-145); Thyroid Stim Hormone (TSH) 2.04 uIU/mL (0.358-3.74)
[2018-11-28 20:45] LABS: Magnesium 2.1 mg/dL (1.6-2.6)
[2018-11-28] MEDS: Metoprolol(XL)Succ 25 MG Tablet 12.5 MG PO (21:56)
== END 2018-11-28 22:31 | disposition home or self-care (01) ==
PROVIDERS: Emergency Provider Emergency Medicine; Family Provider Internal Medicine; PCP Internal Medicine
DX: I47.1 Supraventricular tachycardia (principal); E87.6 Hypokalemia; Z88.0 Allergy status to penicillin; Z87.891 Personal history of nicotine dependence; Z90.49 Acquired absence of other specified parts of digestive tract
CPT/HCPCS: 71045; 80048; 83735; 84443; 84484; 85025; 93005; 96361; 96374; 99285; A4216; J0153

== ENCOUNTER → 2018-12-13 11:18 | Outpatient (CLI) | payer OTHER, SELFPAY ==
[2018-12-13 09:42] VITALS: BMI 31.9
[2018-12-13 13:06] LABS: Anion Gap 5 (5-15); BUN 12 mg/dL (7-18); BUN/Creat Ratio 17.8 RATIO (10-20); Calcium,Total 8.7 mg/dL (8.5-10.1); Chloride 105 mmol/L (98-107); Creatinine, Serum 0.68 mg/dL (0.55-1.02); EST Glomerular Filtration Rate 103 mL/min (>60); Est Glom Filt Rate - Afr Amer 124 mL/min (>60); Glucose 77 mg/dL (74-106); Magnesium 1.9 mg/dL (1.6-2.6); Potassium 3.8 mmol/L (3.5-5.1); Sodium Level 138 mmol/L (136-145)
== END ==
PROVIDERS: Family Provider Internal Medicine; PCP Internal Medicine; Referring Provider Internal Medicine Cardiovascular Disease; Visit Provider Internal Medicine Cardiovascular Disease
DX: I47.1 Supraventricular tachycardia (principal)
CPT/HCPCS: 36415; 80048; 83735

== ENCOUNTER → 2018-12-20 10:47 | Outpatient (CLI) | payer OTHER, SELFPAY ==
[2018-12-13 09:42] VITALS: BMI 31.9
--- NOTE | 2018-12-20 10:49 | ECHOD_ITS ---
Reason For Study: Arrhythmia Procedure This was a 2D Doppler, Color Flow transthoracic echocardiogram. Exam performed in department. Left Ventricle Normal LV size. Left ventricular systolic function is normal. The estimated ejection fraction is 60 %. Normal diastology for age. No regional wall motion abnormalities noted. Right Ventricle Normal RV size. Normal systolic function. Atria Normal left atrium. Normal right atrium. Mitral Valve Bileaflet diffuse mitral valve thickening. Tricuspid Valve Normal tricuspid valve. Mild (1+) tricuspid valve insufficiency. Pulmonary artery systolic pressure is 30 mmHg. Aortic Valve Normal aortic valve. Trisinus/trileaflet aortic valve. Pulmonic Valve Normal pulmonic valve. Great Vessels Normal aortic root. The pulmonary artery is normal size. Normal inferior vena cava. Pericardium/Pleural No pericardial effusion. MMode/2D Measurements & Calculations LVIDd: 5.0 cm IVSd: 0.83 cm Ao root diam: 3.2 cm LVIDs: 3.2 cm LVPWd: 0.83 cm LA dimension: 3.6 cm RVDd: 3.4 cm FS: 36.8 % LAV(MOD-bp): 47.3 ml LA A4 area: 17.4 cm2 RA A4 area: 16.2 cm2 LAV(MOD-bp) Indexed: 25.0 ml/m2 LAV(MOD-sp2): 46.4 ml LAV(MOD-sp4): 43.8 ml Time Measurements MV dec time: 0.25 sec Doppler Measurements & Calculations MV E max edil: 79.6 cm/sec Med Peak E' Edil: 12.0 cm/sec MV V2 max: 77.1 cm/sec MV A max edil: 52.1 cm/sec E/E' med: 6.6 MV max P.4 mmHg MV E/A: 1.5 MV V2 mean: 38.6 cm/sec MV mean P.72 mmHg MV V2 VTI: 26.4 cm MV P1/2t max edil: 78.2 cm/sec Ao V2 max: 133.5 cm/sec LV V1 max: 113.2 cm/sec MV P1/2t: 107.8 msec Ao max P.1 mmHg LV V1 max P.1 mmHg MV dec slope: 212.4 cm/sec2 MVA(P1/2t): 2.0 cm2 PA V2 max: 87.6 cm/sec TR max edil: 254.5 cm/sec TR max P.9 mmHg Interpretation Summary Normal LV size. Left ventricular systolic function is normal. The estimated ejection fraction is 60 %. Mild (1+) tricuspid valve insufficiency. Bileaflet diffuse mitral valve thickening. Ordering Physician: Michoacano Araujo Referring Physician: courtney dent Performed By: Beto Reyes RCS
== END ==
PROVIDERS: Family Provider Internal Medicine; PCP Internal Medicine; Referring Provider Internal Medicine Cardiovascular Disease; Visit Provider Internal Medicine Cardiovascular Disease
DX: I47.1 Supraventricular tachycardia (principal)
CPT/HCPCS: 93306

== ENCOUNTER → 2019-04-13 17:07 | Outpatient (CLI) | payer OTHER, SELFPAY ==
[2019-04-13 09:57] VITALS: BMI 32.5
[2019-04-18 15:39] LABS: HPV APTIMA, High Risk Negative (Negative)
== END ==
PROVIDERS: Family Provider Internal Medicine; PCP Internal Medicine; Referring Provider Nurse Practitioner Women's Health; Visit Provider Nurse Practitioner Women's Health
DX: Z12.4 Encounter for screening for malignant neoplasm of cervix (principal)
CPT/HCPCS: 87624; 88175; G0145

== ENCOUNTER → 2019-05-17 13:24 | Outpatient (CLI) | payer OTHER, SELFPAY ==
[2019-04-13 09:57] VITALS: BMI 32.5
--- NOTE | 2019-05-17 13:26 | US_ITS ---
STUDY: ULTRASOUND TRANSVAGINAL CLINICAL: Female, 39 years old. Menorrhagia TECHNIQUE: Transvaginal COMPARISON: None. FINDINGS: Normal uterine size measuring 9.0 x 4.9 x 4.1 cm in maximal craniocaudal dimension. There are no myometrial masses. Normal endometrial thickness measuring 12 mm. There are no endometrial masses, and there is no fluid in the endometrial cavity. Normal uterine cervix. Normal right ovary, measuring 3.1 x 2.6 x 3.0 cm. There are multiple follicles without a dominant cyst. Prominent follicle Normal left ovary, measuring 3.8 x 2.4 x 3.0 cm. There are multiple follicles without a dominant cyst. Prominent follicle There is no free fluid in the pelvis. Polycystic ovary disease: No. US/Pelvic (Non ) IMPRESSION: Normal pelvic ultrasound. Prominent follicles bilaterally. Electronically Signed: Karlos Bailey MD at 16:23 EST Tel , Service support ,
--- NOTE | 2019-05-17 13:26 | BI_ITS ---
MAMMOGRAPHY - BILATERAL SCREENING REASON FOR EXAM: Female, 39 years old. Routine annual screening examination. PERTINENT HISTORY: Non-contributory. TECHNIQUE: Digital bilateral breast dipti (3D mammographic acquisition) in the CC and MLO projections. 2-D mediolateral oblique (MLO) and craniocaudad (CC) views of both breasts were obtained. CAD: Full Field Digital Mammography with Computer Added Detection was performed. COMPARISON: None. Baseline examination. FINDINGS: Breast Composition: The breasts are extremely dense, which lowers the sensitivity of mammography. There are no dominant masses or suspicious calcifications. No other significant abnormalities are identified. BI/SCREEN MAMM (CAD) W/DIPTI BILAT IMPRESSION: Negative screening mammogram. Yearly followup mammogram recommended. (A) ASSESSMENT CATEGORY: BIRADS Category 1: Negative. A letter regarding these results will be sent to the patient by the facility within 30 days. Approximately 10% of breast cancers are not detected by mammography. A normal mammogram should not delay biopsy of a clinically suspicious abnormality. [id number] Electronically Signed: Iván Huff, at 15:29 EST , Service support ,
--- NOTE | 2019-05-17 13:26 | US_ITS ---
STUDY: ULTRASOUND TRANSVAGINAL CLINICAL: Female, 39 years old. Menorrhagia TECHNIQUE: Transvaginal COMPARISON: None. FINDINGS: Normal uterine size measuring 9.0 x 4.9 x 4.1 cm in maximal craniocaudal dimension. There are no myometrial masses. Normal endometrial thickness measuring 12 mm. There are no endometrial masses, and there is no fluid in the endometrial cavity. Normal uterine cervix. Normal right ovary, measuring 3.1 x 2.6 x 3.0 cm. There are multiple follicles without a dominant cyst. Prominent follicle Normal left ovary, measuring 3.8 x 2.4 x 3.0 cm. There are multiple follicles without a dominant cyst. Prominent follicle There is no free fluid in the pelvis. Polycystic ovary disease: No. US/Transvaginal Non- IMPRESSION: Normal pelvic ultrasound. Prominent follicles bilaterally. Electronically Signed: Karlos Bailey MD at 16:23 EST Tel , Service support ,
== END ==
PROVIDERS: Family Provider Internal Medicine; PCP Internal Medicine; Referring Provider Nurse Practitioner Women's Health; Visit Provider Nurse Practitioner Women's Health
DX: Z12.31 Encounter for screening mammogram for malignant neoplasm of breast (principal); N92.0 Excessive and frequent menstruation with regular cycle
CPT/HCPCS: 76830; 76856; 77063; 77067

== ENCOUNTER → 2019-11-02 | Outpatient (CLI) | payer OTHER, SELFPAY ==
[2019-11-01 11:14] VITALS: BMI 32.5
[2019-11-02 11:30] LABS: Chlamydia Trachomatis by PCR Negative (Negative); Neisserai gonorrhoeae by PCR Negative (Negative); Probe Check PASS; Sample Adequacy Control PASS; Specimen Processing Control PASS
== END | disposition home or self-care (01) ==
LOC: LABSPEC 08:43
PROVIDERS: PCP Internal Medicine; Referring Provider Obstetrics & Gynecology; Visit Provider Obstetrics & Gynecology
DX: N93.0 Postcoital and contact bleeding (principal)
CPT/HCPCS: 87070; 87205; 87491; 87591

== ENCOUNTER → 2019-11-07 13:57 | Outpatient (CLI) | payer OTHER, SELFPAY ==
[2019-11-01 11:14] VITALS: BMI 32.5
--- NOTE | 2019-11-07 14:00 | US_ITS ---
STUDY: ULTRASOUND OF THE FEMALE PELVIS - COMPLETE REASON FOR EXAM: Female, 39 years old. PCB LMP: October 13, 2019. TECHNIQUE: Transabdominal and Transvaginal TECHNICAL QUALITY: Adequate. COMPARISON: Comparison is made with prior examination dated May 17, 2019. FINDINGS: The uterus is anteverted and is in a midline position. The uterus measures 6.9 cm x 4.7 cm x 4 cm. There is a Nabothian cyst of the cervix. The endometrium measures 13 mm in thickness, and is hyperechoic. There is no demonstrated endometrial mass. There is no demonstrated myometrial mass. I.U.D. - The patient does not have an I.U.D. The right ovary is visualized. The right ovary measures 2.2 cm x 1 cm x 1.1 cm. There is no right ovarian cyst or ovarian mass. There is no visualized right adnexal mass or complex lesion. There is normal arterial and normal venous vascularity. The left ovary is visualized. The left ovary measures 2.3 cm x 1.1 cm x 0.8 cm. There is no left ovarian cyst or ovarian mass. There is no visualized left adnexal mass or complex lesion. There is normal arterial and normal venous vascularity. There is no fluid in the cul-de-sac. The pre void volume of the bladder was 97 ml. US/Transvaginal Non- IMPRESSION: Normal female pelvis. Electronically Signed: Iván Huff, at 15:42 EDT , Service support ,
--- NOTE | 2019-11-07 14:00 | US_ITS ---
STUDY: ULTRASOUND OF THE FEMALE PELVIS - COMPLETE REASON FOR EXAM: Female, 39 years old. PCB LMP: October 13, 2019. TECHNIQUE: Transabdominal and Transvaginal TECHNICAL QUALITY: Adequate. COMPARISON: Comparison is made with prior examination dated May 17, 2019. FINDINGS: The uterus is anteverted and is in a midline position. The uterus measures 6.9 cm x 4.7 cm x 4 cm. There is a Nabothian cyst of the cervix. The endometrium measures 13 mm in thickness, and is hyperechoic. There is no demonstrated endometrial mass. There is no demonstrated myometrial mass. I.U.D. - The patient does not have an I.U.D. The right ovary is visualized. The right ovary measures 2.2 cm x 1 cm x 1.1 cm. There is no right ovarian cyst or ovarian mass. There is no visualized right adnexal mass or complex lesion. There is normal arterial and normal venous vascularity. The left ovary is visualized. The left ovary measures 2.3 cm x 1.1 cm x 0.8 cm. There is no left ovarian cyst or ovarian mass. There is no visualized left adnexal mass or complex lesion. There is normal arterial and normal venous vascularity. There is no fluid in the cul-de-sac. The pre void volume of the bladder was 97 ml. US/Pelvic (Non ) IMPRESSION: Normal female pelvis. Electronically Signed: Iván Huff, at 15:42 EDT , Service support ,
--- NOTE | 2019-11-07 14:07 | CT_ITS ---
STUDY: CT RIGHT KNEE WITHOUT CONTRAST REASON FOR EXAM: Female, 39 years old. Medial and posterior right knee pain/swelling x 1 month, no known injury. RADIATION DOSAGE (If Supplied By Facility): CTDIvol = ( 14.54 ) mGy, DLP = ( 426.55 ) mGycm TECHNIQUE: Transaxial CT imaging of the knee was performed. Coronal and sagittal images were reformatted. Individualized dose optimization techniques were used for this CT. COMPARISON: None. FINDINGS: Normal medial femoral condyle and medial tibial plateau. There is preservation of the articular joint space of the medial knee compartment. Normal lateral femoral condyle and lateral tibial plateau. There is preservation of the articular joint space of the lateral knee compartment. Normal proximal tibiofibular articulation. There is no joint effusion. The quadriceps tendon is grossly normal. The patellar tendon is grossly normal. Normal Hoffa''s fat pad. The soft tissues are unremarkable. CT/Extremity Lower without Contra IMPRESSION: Normal CT of the knee. Electronically Signed: Iván Huff, at 15:09 EDT , Service support ,
== END ==
PROVIDERS: PCP Internal Medicine; Referring Provider Obstetrics & Gynecology; Visit Provider Obstetrics & Gynecology
DX: M25.561 Pain in right knee (principal); N93.0 Postcoital and contact bleeding; R60.9 Edema, unspecified
CPT/HCPCS: 73700; 76830; 76856

== ENCOUNTER → 2019-11-21 10:13 | Outpatient (CLI) | payer OTHER, SELFPAY ==
--- NOTE | 2019-11-21 | RAD_ITS ---
STUDY: X-RAY - RIGHT KNEE REASON FOR EXAM: Female, 39 years old. RIGHT KNEE PAIN UNDER PATELLA AREA, NKI TECHNIQUE: 4 view(s) of the knee. COMPARISON: None. FINDINGS: Normal visualized distal femur. Normal visualized proximal tibia and fibula. Normal proximal tibiofibular articulation. Normal medial femorotibial compartment. Normal lateral femorotibial compartment. Normal patellofemoral articulation. The soft tissue structures are unremarkable. RAD/Knee 4 or More Views IMPRESSION: Normal x-ray examination of the knee. Electronically Signed: Iván Huff, at 15:27 EDT , Service support ,
[2019-11-21 10:10] VITALS: BMI 32.5
== END ==
PROVIDERS: PCP Internal Medicine; Referring Provider Orthopaedic Surgery; Visit Provider Orthopaedic Surgery
DX: M25.561 Pain in right knee (principal)
CPT/HCPCS: 73564

== ENCOUNTER → 2019-11-21 13:02 | Outpatient (CLI) | payer OTHER, SELFPAY ==
[2019-11-01 11:14] VITALS: BMI 32.5
[2019-11-21 11:00] VITALS: BMI 31.7
--- NOTE | 2019-11-21 13:29 | MRI_ITS ---
STUDY: MRI RIGHT KNEE REASON FOR EXAM: Right medial and infrapatellar knee pain for 2 months. TECHNIQUE: Standardized fat and water weighted pulse sequences were obtained in all 3 orthogonal planes. COMPARISON: Radiographs 11/21/2019. FINDINGS: Normal medial meniscus. Normal hyaline cartilage of the medial femorotibial compartment. Normal medial femoral condyle and tibial plateau. Normal medial collateral ligamentous complex (MCL). Normal distal semimembranosus, gracilis and semitendinosus tendons. Normal lateral meniscus. Normal hyaline cartilage of the lateral femorotibial compartment. Normal lateral femoral condyle and tibial plateau. Normal proximal tibiofibular articulation. Normal lateral collateral (fibular) ligament. Normal popliteus tendon. Normal biceps femoris tendon. Normal anterior cruciate ligament (ACL). Normal posterior cruciate ligament (PCL). Normal congruent patellofemoral articulation. Normal hyaline cartilage of the patellofemoral compartment. Normal medial and lateral patellar retinaculum. Normal visualized quadriceps tendon. There are two small chondral tears of the medial patellar facet (T2 axial image 10). Normal Hoffa''s fat pad. There is a minimal volume of fluid in the knee joint. There is a short thin medial patellar plica. There is mild edema in the anterior subcutis adipose space. The otherwise visualized osseous structures are unremarkable. MRI/Lower Ext Joint Only (Routine) IMPRESSION: Small chondral tears of the medial patellar facet. Mild edema in the anterior subcutis adipose space. Otherwise, unremarkable MRI of the right knee. Electronically Signed: Reynaldo Bedoya MD at 14:32 EDT Tel , Service support ,
== END ==
PROVIDERS: PCP Internal Medicine; Referring Provider Internal Medicine; Visit Provider Internal Medicine
DX: M25.561 Pain in right knee (principal)
CPT/HCPCS: 73721

== ENCOUNTER 2019-12-11 05:58 | Day surgery (SDC) | payer OTHER, SELFPAY ==
[2019-11-01 11:14] VITALS: BMI 32.5
[2019-11-30 07:58] VITALS: BMI 31.7
[2019-12-11] VITALS (11 sets, daily range): BP systolic 103–119; BP diastolic 60–82; PULSE 62–77; RESP 16–18; TEMP 36.3–36.4; O2SAT 98–100; BMI 32.7
--- NOTE | 2019-12-11 | EMB_PTH ---
PATIENT: MARVA SEXTON LOC: [facility] [place] U#:[id number] AGE/SX: 39/F ROOM: RE12/11/[address]: Dr. Shanelle Craven MD : 1980 BED: DIS: 12/11/2019 SPEC #: [id number] RECD: 12/11/19 11:59 STATUS: KALLIE RUDY #: [id number] JAMIA: 12/11/19 00:[address]: Shanelle Craven DEPT: SURGICAL PATHOLOGY RECD BY: Miles Birmingham ENTERED: 12/11/19 11:59 SP TYPE: ENDOM BX/C NICANOR DR: Dr. Enma Rizvi MD Tissues: Endometrium, NOS Procedures: Surgery Specimen Level IV HEADER OPERATION: Hysteroscopy, D & C Nika PRE-OP DIAGNOSIS: Abnormal uterine bleeding; post coital bleeding; dysmenorrhea TISSUE SUBMITTED: Endometrial curettings MICROSCOPIC DIAGNOSIS Endometrium, curettings: Proliferative endometrium with focal glandular breakdown. Mild chronic endometritis. Strips of benign superficial endocervix. AM:ilir 12/12/19 MICROSCOPIC DESCRIPTION Slides are reviewed. GROSS DESCRIPTION Received in fixative is one container labeled with the patient's name and designated endometrial curettings. The specimen consists of multiple irregular fragments of mendez-pink soft tissue that in aggregate measure 3 x 2.5 x 0.1 cm. The specimen is totally submitted in one cassette. / SJ:ilir 12/11/19 TC:3 CPT: 05224
--- NOTE | 2019-12-11 04:25 | PCM.HP.STD ---
Problem List (1) Abnormal uterine bleeding Status: Acute Comment: failed lysteda. declined IUD plan alla ablation (2) PCB (post coital bleeding) Status: Acute Comment: pelvic us nl in fall, repeat ordered, infectious screening negative History of Present Illness Date of Admission: 12/11/19 The patient is a 39 year old F presents with recurrent heavy menses that was inadequately treated with tranexamic acid. She has a history of a normal ultrasound within the last year. She has a history of cervical dysplasia and had a previous LEEP and cone biopsy. She has also had some intermittent postcoital bleeding. 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 Hx of cholecystectomy Onset Date: ~2008 Z90.49 Smoking Status: Former smoker Tobacco Use: Non-smoker Review of Systems Constitutional: Denies: Fever, Malaise Eyes: Denies: Blurred vision, Vision Change HEENT: Denies: Head Aches, Visual Changes Cardiovascular: Denies: Chest Pain, Palpitations Respiratory: Denies: Cough, Shortness of Breath, Wheezing Gastrointestinal: Denies: Abdominal Pain, Diarrhea, Nausea, Vomiting Genitourinary: Denies: Dysuria, Hematuria Musculoskeletal: Denies: Joint Pain, Muscle pain Skin: Denies: Lesions, Rash Neurological: Denies: Blurred vision, Focal weakness, Headaches Psychiatric: Denies: Anxiety, Depression Endocrine: Denies: Heat/ Cold Intolerance Hematologic/ Lymphatic: Denies: Easy Bruising, Easy Bleeding VTE Information - Inpt Only VTE Present on Admission: No - Physical Exam Vitals/I&O's: Body Mass Index (BMI) 32.5 General: Alert, Oriented x3 HEENT: Atraumatic, Normocephalic Oral: Moist Mucosa Neck: Supple, No Nodes, Trachea Midline, Thyroid Normal Size and Texture Lungs: Clear to auscultation, Normal air movement Cardiovascular: Regular rate, Regular Rhythm Abdomen: Soft, Non Tender, Non-Distended Extremities: No edema Skin: No rashes Musculoskeletal: No Tenderness to Palpation of Joints or Extremities Neurological: Neuro grossly intact Assessment/Plan All Active Problems (Last Reviewed 11/01/19 @ 11:13 by Emily Willoughby) Obesity (Acute) Abnormal uterine bleeding (Acute) PCB (post coital bleeding) (Acute) Dysmenorrhea (Acute) Sterilization (Resolved) 39-year-old with abnormal uterine bleeding for d and c hysteroscopy alla ablation. After discussing the patient's diagnosis and treatment plan options, patient wishes to proceed with surgical management. I have discussed with the patient the risks, benefits, and alternatives of the procedure which include but are not limited to risks of anesthesia, bleeding, infection, possible damage to bowel, bladder, or surrounding vasculature which could lead to additional surgery to evaluate any complications. Patient agrees to procedure and wishes to proceed. ACOG/uptodate references given for additional information regarding procedure. Patient was counseled that if she has any endometrial hyperplasia upon D&C she may need additional procedures or intervention.
--- NOTE | 2019-12-11 06:03 | EKG12_ITS ---
Test Reason : PRE OP Blood Pressure : / mmHG Vent. Rate : 072 BPM Atrial Rate : 072 BPM P-R Int : 132 ms QRS Dur : 088 ms QT Int : 404 ms P-R-T Axes : 059 050 060 degrees QTc Int : 442 ms Normal sinus rhythm Normal ECG Confirmed by STEFANIA RIVERA, CHRIS ([id number]), copy editor LUCIANA EDDY ([id number]) on 12/12/2019 10:45:21 AM Referred By: Shanelle Craven Confirmed By:CHRIS AGUIAR MD
[2019-12-11 06:24] LABS: Hematocrit 39.5 % (37-47); Hemoglobin 12.8 g/dL (12.0-15.0); Mean Corp Hgb Conc 32.4 g/dL (32-36); Mean Corpuscular Hgb 29.6 pg (27.0-32.0); Mean Corpuscular Volume 91.2 fL (81-99); Mean Platelet Vol. 8.7 fl (6.2-12.0); Platelet Count 317 K/mm3 (150-450); RBC Distribution Width CV 12.6 % (11.6-14.6); RBC Distribution Width SD 41.8 fl (35.1-43.9); Red Blood Count 4.33 M/mm3 (4.2-5.4); White Blood Count 7.4 K/mm3 (4.4-11.0)
[2019-12-11] MEDS: Lactated Ringers 1,000 ML 100 ML IV ×2 (06:36→08:03)
[2019-12-11 06:37] LABS: ALB/GLOB Ratio 1.1 RATIO (0.9-2.4); AST(SGOT) 16 U/L (15-37); Alanine Aminotransfer ALT/SGPT 22 U/L (13-56); Albumin, Serum 3.6 g/dL (3.2-5.0); Alkaline Phosphatase 73 U/L (45-117); Anion Gap 2 (5-15); BUN 22 mg/dL (7-18); BUN/Creat Ratio 30.3 RATIO (10-20); Calcium,Total 8.2 mg/dL (8.5-10.1); Chloride 106 mmol/L (98-107); Creatinine, Serum 0.72 mg/dL (0.55-1.02); EST Glomerular Filtration Rate 94 mL/min (>60); Est Glom Filt Rate - Afr Amer 114 mL/min (>60); Estimated Creatinine Clearance 89.69 ml/min; Globulin 3.3 g/dL (2.2-4.2); Glucose 88 mg/dL (74-106); Potassium 3.5 mmol/L (3.5-5.1); Protein, Total 6.9 g/dL (6.4-8.2); Sodium Level 139 mmol/L (136-145)
--- NOTE | 2019-12-11 07:42 | PCM.OPRPT ---
Problem List (1) Abnormal uterine bleeding Status: Acute Comment: failed lysteda. declined IUD plan nika ablation (2) PCB (post coital bleeding) Status: Acute Comment: pelvic us nl in fall, repeat ordered, infectious screening negative Report of Operation Date of Procedure: 12/11/19 Pre-Operative Diagnosis: AUB Post-Operative Diagnosis: SAME Surgery/Procedure Performed:: d and c hysteroscopy nika ablation Description of Surgical Findings:: small cavity 4 cm length bare minimum width Type of Anesthesia:: Local MAC Special Medications: none Specimen's removed: emc Drains: none Estimated Blood Loss (mL): minimal Fluids Replaced: crystalloid Description of Procedure: Patient was prepped and draped in a normal sterile fashion under MAC anesthesia. A weighted speculum was placed in the vagina and the anterior lip of the cervix was grasped with a single-tooth tenaculum. A paracervical block was placed with 1% lidocaine. Cervix was progressively dilated to allow passage of a 5 mm hysteroscope. The lining was fully visualized and noted to have a narrow cavity with no significant lining abnormality seen. Uterine sounded to 7.5 cm. Curettage was performed and amount of tissue was removed, sent to pathology. The Nika device was opened and the cavity length was found to be 4 cm with a bare minimum width requirements met. Device was inserted into the uterus and balloon inflated and device deployed. Integrity of the cavity was confirmed and a 2 minute treatment cycle was completed without complication. All instruments were removed from the vagina and excellent hemostasis was noted. Some glandular tissue was noted at the endocervical junction and therefore this was ablated with the Bovie due to the patient's history of postcoital bleeding intermittently. Patient was awoken and taken to recovery in stable condition. Grafts/Implants Used: none - Complications none - Admit VTE Documentation VTE Present on Admission: No Multi Select Codes - Urinary/Genital Urinary/Genital CPT Codes: 84570 Non-ob D&C, 58649 Nika/Novasure
--- NOTE | 2019-12-11 07:45 | DCINST_ITS ---
Discharge Diet: No Restrictions Discharge Activity: Return to Normal Activity, May Shower, May Take a Tub Bath Allergies/Adverse Reactions: Allergies Penicillins Allergy (Verified 12/11/19 06:17) Unknown Medications to take at Discharge phentermine 37.5 mg tablet 37.5 mg PO QDAY #30 tab 11/29/19 Primary Care Physician: Enma Rizvi MD [Primary Care Provider] - Test Results: Test results from this visit will be discussed in further detail at your follow- up appointment, if applicable. Please Follow Up With: Shanelle Craven MD - [phone]
[2019-12-11] MEDS: Ondansetron 4 MG/2 ML Vial IM (08:45)
--- NOTE | 2019-12-11 10:44 | SUR.PHASEII ---
AT 8:45, DEVELOPED NAUSEA WITH DRY HEAVES. DR MERY BISHOP.
== END 2019-12-11 10:11 | disposition home or self-care (01) ==
LOC: SDC 05:58 → AC 06:08
PROVIDERS: Anesthesiology; PCP Internal Medicine; Referring Provider Obstetrics & Gynecology; Visit Provider Obstetrics & Gynecology
PROC: 0U5B8ZZ Destruction of Endometrium, Via Natural or Artificial Opening Endoscopic (ICD-10-PCS; CPT 58558; principal; 2019-12-11 07:20)
DX: N71.1 Chronic inflammatory disease of uterus (principal); N93.0 Postcoital and contact bleeding; Z11.59 Encounter for screening for other viral diseases; I47.1 Supraventricular tachycardia; E66.9 Obesity, unspecified; Z68.32 Body mass index [BMI] 32.0-32.9, adult; Z87.891 Personal history of nicotine dependence
CPT/HCPCS: 58563; 36415; 80053; 85027; 86850; 86900; 86901; 87635; 88305; 93005; G2023; J7120; J2405; U0003

== ENCOUNTER 2022-05-04 18:49 | Observation (INO) | payer BC, SELFPAY ==
--- NOTE | 2022-05-03 14:28 | HP.PCM_ITS ---
History and Physical Vital Signs ? 05/03/2207:54 05/03/2213:52 05/03/2213:54 Height? 5 ft 4 in 5 ft 4 in 5 ft 4 in Weight:? ? 189 lb ? BMI? ? 32.4 ? BP? ? 110/73 ? Intake Visit Reasons:?pre op (Hysterectomy) 05/04/22 Chief Complaint:?pre op [facility] Psychosocial Rehabilitation Counselor Required:?No Is patient in pain?:?No Allergies Penicillins Allergy (Verified 03/01/22 13:23) Unknown Medications desvenlafaxine succinate 50 mg tablet,extended release 24 hr (Pristiq) 50 mg PO DAILY 01/20/22 [History Confirmed 05/03/22] trazodone 100 mg tablet 100 mg PO .prn 01/20/22 [History Confirmed 05/03/22] cetirizine 10 mg capsule (Zyrtec) 10 mg PO DAILY PRN ALLERGIES 03/01/22 [History Confirmed 05/03/22] Is last menstrual period known:?No Post menopausal:?No Patient :?No :?No [facility] Medical History?(Updated 05/03/22 @ 14:[address] Shanelle Craven MD) Abnormal Pap smear of cervix Abnormal uterine bleeding Anxiety Arthritis BMI 34.0-34.9,adult Cardiology follow-up encounter Dysmenorrhea Former smoker Obesity Paroxysmal supraventricular tachycardia (11/28/18) PCB (post coital bleeding) Wears glasses Surgical History? H/O bilateral salpingectomy H/O LEEP (~2002) History of conization of cervix (~2003) History of radiofrequency ablation procedure for cardiac arrhythmia (02/02/19) Hx of cholecystectomy (~2008) S/P dilation and curettage (12/10/19) Status post hysteroscopy (~12/11/19) Family History? FatherTIA (transient ischemic attack) HypertensionMother?? Cancer ?? ? lungBrother Heart disease Myocardial infarction ?? ? STEMI age 37 had PCI CAD (coronary artery disease) ?? ? PCI Social History? adopted:? No household members:? children housing:? house number of children:? 1 current occupational status:? employed current occupation:? [employer] current occupational exposures/hazards:? Yes pets and animals:? No history of recent travel:? No Smoking Status:? Former smoker second hand exposure:? No alcohol intake:? current alcohol intake frequency: holidays/special occasions only substance use type:? does not use caffeine:? Yes Type: coffee Number of servings: 2 what type of physical activity do you participate in:? walking and aerobics frequency:? 3-4 times per week seatbelt use:? always do you feel safe at home:? Yes HPI pre op (Hysterectomy) 05/04/22 Details: MARVA SEXTON is a 42 year old who presents for preop visit for hysterectomy. she has had persistent cyclic dysmenorrhea and pelvic pain severe likely caused by the endometrial ablation. Female Reproductive History Menopausal Symptoms:?No hot flashes, No night sweats, No difficulty concentrating and No change in libido History ? ? ? 1 ? Elective abortions ? Hx Para ? ? ? 1 ? Spontaneous abortions ? Hx # Term Pregnancies ? ? ? 1 ? Ectopic pregnancies ? Hx # Pregnancies ? Multiple births ? # of living children ? ? ? 1 Past Pregnancies Del. Date? Name? GA/Weeks? Outcome? Route? Bth Weight? Gen? Labor Lgth? Anesthesia? Del Locatn? Provider? FOB? Unknown 12/12/2001- Melany ? ROS Const Constitutional:?Denies night sweats ENT ENT:?Reports system reviewed and no additional complaints, except as documented Cardio Card:?Denies chest pain Resp Resp:?Denies cough or dyspnea GI GI:?Reports as per HPI; Denies constipation, nausea or vomiting :?Denies hot flashes or nipple discharge Musc Musc:?Denies arthralgias, back pain or muscle weakness Skin Skin/Breast:?Denies alopecia, change in hair, dry skin, breast mass, breast pain, breast skin changes or nipple discharge Neuro Neuro:?Reports system reviewed and no additional complaints, except as documented Psych Psych:?Denies change in libido or difficulty concentrating Endo Endo:?Denies cold intolerance, excessive sweating, heat intolerance or polydipsia Pop/Lymph Hematologic/Lymphatic:?Denies easy bleeding, Denies easy bruising and Denies lymphadenopathy Exam Const General:?cooperative, healthy appearing, comfortable, no acute distress and well developed Orientation:?alert [facility] Head:?normal to inspection and normocephalic Ears:?hearing grossly normal bilaterally and external ears normal Nose:?external nose normal and nares normal Face and sinus:?normal facial exam Neck Neck:?normal visual inspection and no lymphadenopathy Thyroid:?thyroid normal Chest Chest palpation & inspection:?normal inspection of the chest Resp Effort & Inspection:?normal respiratory effort Auscultation:?clear to auscultation bilaterally Cardio Rate:?regular rate Rhythm:?regular rhythm Heart Sounds:?S1 normal and S2 normal GI Inspection:?normal to inspection and non-distended Palpation:?soft and no hepatosplenomegaly General:?bladder normal to palpation External Female Exam:?normal external appearance and normal appearance of the urethra Urethra:?normal appearance of the urethra, normal palpation and no discharge Speculum Exam - Vagina:?normal appearance of the vagina and normal vaginal discharge Speculum Exam - Cervix:?normal appearance of the cervix and nontender Bimanual Exam- Vagina & Uterus:?normal bimanual exam, uterine size normal, bladder normal to palpation, uterine shape normal, No tender, uterine mobility normal, consistency normal, normal palpation and non-tender Bimanual Exam- Adnexa, other:?normal adnexae, adnexae mobile, no masses and normal Pelvic Support:?normal Musc Other: gross motor intact no deficits, full bilateral strength Skin General:?no rashes or lesions noted Neuro General:?patient alert, patient awake, moves all extremities and no focal motor deficits Motor:?muscle tone normal throughout Extrem General:?normal to inspection and no pedal edema Psych Appearance:?grossly normal Mental Status:?mental status grossly normal Affect:?normal affect Speech and Movement:?speech and movement normal Coding Level of Care Code No Charge Diagnoses Dysmenorrhea? N94.6 S/P dilation and curettage? Z98.890 Assessment and Plan Assessment and Plan (1) Dysmenorrhea: ?Status:?Chronic ?Comment: post ablation pelvic pain syndrome. (2) S/P dilation and curettage: ?Status:?Resolved ?Comment: Nika ablation Plan After discussing the patient's diagnosis and treatment plan options, patient wishes to proceed with surgical management.? I have discussed with the patient the risks, benefits, and alternatives of the procedure which include but are not limited to risks of anesthesia, bleeding, infection, possible damage to bowel, bladder, or surrounding vasculature which could lead to additional surgery to evaluate any complications.? Patient agrees to procedure and wishes to proceed.? ACOG/uptodate references given for additional information regarding procedure.? UPDATE- I have seen the patient and performed any clinically relevant updates to the history and physical exam. Shanelle Craven MD
[2022-05-03 14:57] LABS: Absolute Lymphocyte Count 1.75 X10^3/uL (0.83-4.51); Absolute Neutrophil Count 2.5 X10^3/uL (2.0-7.7); Basophil# 0.03 X10^3/uL; Basophil% 0.6 % (0-1); Hematocrit 40.5 % (37-47); Hemoglobin 13.1 g/dL (12.0-15.0); Lymphocyte # 1.75 X10^3/ul (0.83-4.51); Mean Corp Hgb Conc 32.3 g/dL (32-36); Mean Corpuscular Hgb 28.3 pg (27.0-32.0); Mean Corpuscular Volume 87.5 fL (81-99); Mean Platelet Vol. 8.7 fl (6.2-12.0); Monocyte# 0.63 X10^3/uL; Monocyte% 12.6 % (0-10); NRBC Flagged by Analyzer 0 % (0-5); Neutrophil # 2.47 X10^3/uL (2.7-7.7); Neutrophil % 49.4 % (47-70); Platelet Count 289 K/mm3 (150-450); RBC Distribution Width CV 12.7 % (11.6-14.6); RBC Distribution Width SD 40.3 fl (35.1-43.9); Red Blood Count 4.63 M/mm3 (4.2-5.4)
[2022-05-03 15:21] LABS: Magnesium 2.3 mg/dL (1.6-2.6)
[2022-05-03 15:23] LABS: Anion Gap 4 (5-15); BUN 7 mg/dL (7-18); BUN/Creat Ratio 11.1 RATIO (10-20); Calcium,Total 8.5 mg/dL (8.5-10.1); Chloride 105 mmol/L (98-107); Creatinine, Serum 0.63 mg/dL (0.55-1.02); EST Glomerular Filtration Rate 109 mL/min (>60); Est Glom Filt Rate - Afr Amer 132 mL/min (>60); Estimated Creatinine Clearance 99.43 ml/min; Glucose 90 mg/dL (74-106); Potassium 3.8 mmol/L (3.5-5.1); Sodium Level 138 mmol/L (136-145)
[2022-05-04] VITALS (14 sets, daily range): BP systolic 99–123; BP diastolic 66–84; PULSE 66–82; RESP 14–18; TEMP 36–37.1; O2SAT 93–100; BMI 27.7; BMI 31.7
[2022-05-04] MEDS: Lactated Ringers 1,000 ML 40 ML IV (10:25)
[2022-05-04] MEDS: Magnesium 1 GM over 15 mins IV (10:26)
[2022-05-04] MEDS: Gabapentin 600 MG Tablet PO (10:27)
[2022-05-04] MEDS: Phenazopyridine 95 MG Tablet 190 MG PO (10:27)
[2022-05-04] MEDS: Celecoxib 200 MG Capsule 400 MG PO (10:28)
[2022-05-04] MEDS: Acetaminophen 500 MG Tablet 1000 MG PO ×3 (10:28→23:06)
[2022-05-04] MEDS: Scopolamine 1mg/72hr Patch 1 PATCH TD (10:29)
[2022-05-04] MEDS: Enoxaparin 40 MG/0.4 ML Syringe SC (10:30)
[2022-05-04] MEDS: dexAMETHasone 10 MG/ML Vial 8 MG IV (10:32)
--- NOTE | 2022-05-04 11:45 | HYST_PTH ---
PATIENT: MARVA SEXTON LOC: [facility] U#:[id number] AGE/SX: 42/F ROOM: [facility] [place] RE05/04/[address]: Dr. Keyla Aguilera DO : 1980 BED: 1 DIS: 05/05/2022 SPEC #: [id number] RECD: 05/04/22 13:39 STATUS: KALLIE PERAZAKenna #: [id number] JAMIA: 05/04/22 11:[address]: Keyla Aguilera DEPT: SURGICAL PATHOLOGY RECD BY: Angy Sosa ENTERED: 05/05/22 09:03 SP TYPE: HYSTERECT OTHR DR: MD Dr. Shanelle Tariq MD Tissues: Uterus, NOS Procedures: Surgery Specimen Level V HEADER OPERATION: ERAS, vaginal hysterectomy PRE-OP DIAGNOSIS: Dysmenorrhea TISSUE SUBMITTED: Uterus and cervix MICROSCOPIC DIAGNOSIS Uterus, hysterectomy: Cervix ? squamous metaplasia, mild chronic inflammation and nabothian cysts. Endometrium ? secretory endometrium. Myometrium ? adenomyosis, superficial. AM:ilir 05/06/2022 MICROSCOPIC DESCRIPTION Slides are reviewed. GROSS DESCRIPTION Received in fixative is one container labeled with the patient's name and designated uterus. The specimen consists of a cervix with attached uterus without fallopian tubes or ovaries measuring 7.5 x 4.5 x 3.8 cm and weighing 59 gm. The ectocervix is unremarkable. The endocervical canal measures 3 cm in length and is grossly unremarkable. The triangular endometrial cavity measures 2 x 2 cm. The light mendez endometrium measures up to 0.1 cm in thickness. The myometrium measures 1.8 cm in average thickness and is free of mass lesions. Radio Mechanic Apprentice sections are submitted in six cassettes as follows: 1 - anterior cervix, 2 - posterior cervix, 3 & 4 - anterior uterine wall, 5 & 6 - posterior uterine wall. / AM:ilir 05/05/2022 TC:5 CPT: 24558
[2022-05-04] MEDS: Clindamycin 900 MG/50 ML BAG 75 MG IV (12:10)
[2022-05-04 12:14] LABS: Bedside Glucose 72 mg/dL (74-106)
[2022-05-04] MEDS: Vasopressin 20 UNITS/ML Vial (12:32)
[2022-05-04] MEDS: Ondansetron 4 MG/2 ML Vial IV (13:00)
--- NOTE | 2022-05-04 13:11 | OP.PCM_ITS ---
Report of Operation Date of Procedure: 05/04/22 Pre-Operative Diagnosis: see A/P Post-Operative Diagnosis: same Surgery/Procedure Performed:: TV[facility] Surgeon: Shanelle Craven laborer cement gun placing: Melissa Arcos Type of Anesthesia: General Specimen's removed: uterus Drains: calderon Estimated Blood Loss (mL): 100 Fluids Replaced: crystalloid Description of Procedure: Patient was taken to the operating room and was placed under general anesthesia was prepped and draped in normal sterile fashion in the dorsal lithotomy position. Preoperative antibiotics and SCDs and Calderon catheter was placed inside the bladder. Weighted speculum was placed in the vagina and the anterior and posterior lip of the cervix was grasped with 2 Reuben clamps and circumferentially injected with dilute vasopressin. A circumferential incision was made with a scalpel and the posterior cul-de-sac was entered into sharply and a longneck speculum was placed. The anterior cul-de-sac was also dissected down and entered into sharply and the uterosacral ligaments were clamped cut and suture ligated bilaterally followed by the cardinal ligaments which were Clamped cut and suture ligated bilaterally with 0 Monocryl. The uterus serially descended and progressive bites were taken bilaterally up to the level of the utero-ovarian ligament bilaterally which was clamped transected and double ligated with 0 Monocryl suture and 0 Vicryl free tie. Excellent hemostasis was noted. The vagina was closed with [id number]-ae-hymby 0 Vicryl pop offs including the posterior and anterior peritoneum in the reapproximation. Excellent hemostasis was noted. All instruments removed from the vagina clear urine was noted at the end of the procedure and patient was awoken and taken recovery in stable condition. Grafts/Implants Used: none Complications none Admit VTE Documentation VTE Present on Admission: No VTE Mechan Device Prophylaxis: SCD's VTE Pharm Prophylaxis ordered?: Yes Multi Select Codes Urinary/Genital Urinary/Genital CPT Codes: 17682 TVH+BS/O <250gr uterus
--- NOTE | 2022-05-04 13:14 | DCINST_ITS ---
Discharge Instructions Procedure Hysterectomy, Vaginal Diet Discharge Diet: No restrictions Activity Discharge Activity: Return to Normal Activity, May Not Drive (while taking narcotic pain medications.) and May Shower May resume sexual activity in: 6-8 weeks Dressing / Incision Call your doctor if your incision/area has: Continuous Slow Oozing, Sudden Increased Bleeding, Increased Pain/ Swelling, Increased Redness and Foul Smelling Discharge Call your doctor if you observe: Fever of 101 or Higher, Inability to urinate, Inability to have a bowel movement and Using more than 1 pad per hour Follow Up Care Please Follow Up With: Shanelle Craven MD Test Results: Test results from this visit will be discussed in further detail at your follow- up appointment, if applicable. Discharge Plan Admission Attending Provider: Shanelle Craven Primary Care Provider: Enma Rizvi Discharge Orders/Prescriptions Prescriptions: New oxycodone-acetaminophen [Percocet] 5-325 mg tablet 1 tab PO Q6H PRN (Reason: pain) 7 Days Qty: 20 0RF naproxen [naproxen] 500 mg tablet 500 mg PO BID PRN PRN (Reason: Pain) Qty: 30 1RF Continued Zyrtec 10 mg capsule 10 mg PO DAILY PRN (Reason: ALLERGIES) desvenlafaxine succinate [Pristiq] 50 mg tablet extended release 24 hr 50 mg PO DAILY trazodone 100 mg tablet 100 mg PO .prn Referrals / Follow Up: Enma Rizvi MD [Primary Care Provider] - Disposition Disposition (needs filled in before D/C Order can be placed): Home, Self Care
[2022-05-04] MEDS: Ketorolac 30 MG/ML Syringe IV ×2 (14:47→23:06)
[2022-05-04] MEDS: oxyCODONE 5 MG Tablet PO (16:00)
[2022-05-04 16:05] LABS: Hematocrit 39.5 % (37-47); Hemoglobin 12.9 g/dL (12.0-15.0); Mean Corp Hgb Conc 32.7 g/dL (32-36); Mean Corpuscular Hgb 28.4 pg (27.0-32.0); Platelet Count 285 K/mm3 (150-450); RBC Distribution Width CV 12.7 % (11.6-14.6); RBC Distribution Width SD 40.2 fl (35.1-43.9); Red Blood Count 4.54 M/mm3 (4.2-5.4); White Blood Count 12.3 K/mm3 (4.4-11.0)
[2022-05-04] MEDS: Lactated Ringers 1,000 ML 70 ML IV (20:04)
[2022-05-05 02:00] VITALS: BP 112/73; PULSE 77; RESP 15; TEMP 37.2; O2SAT 97
[2022-05-05 03:00] VITALS: BP 112/73; PULSE 77; RESP 15; TEMP 37.2; O2SAT 97
[2022-05-05] MEDS: Ketorolac 30 MG/ML Syringe IV ×2 (05:17→11:47)
[2022-05-05] MEDS: Acetaminophen 500 MG Tablet 1000 MG PO ×2 (05:17→11:45)
[2022-05-05 07:00] LABS: Hematocrit 35.8 % (37-47); Hemoglobin 11.5 g/dL (12.0-15.0); Mean Corp Hgb Conc 32.1 g/dL (32-36); Mean Corpuscular Volume 87.3 fL (81-99); Mean Platelet Vol. 9.2 fl (6.2-12.0); Platelet Count 289 K/mm3 (150-450); RBC Distribution Width CV 12.6 % (11.6-14.6); White Blood Count 10.4 K/mm3 (4.4-11.0)
[2022-05-05 07:19] VITALS: O2SAT 95
[2022-05-05 07:26] VITALS: BP 102/59; PULSE 76; RESP 16; TEMP 36.9; O2SAT 96
[2022-05-05] MEDS: Ensure Plus High Protein 120 ML LIQUID PO ×2 (07:46→11:44)
--- NOTE | 2022-05-05 09:22 | PCM.PN.OB ---
Subjective Subjective pt is laying in bed and states that she still has some lower abdominal cramping. The nurse at bedside scanned 150cc in her bladder after urination, which is an improvement from yesterday. She denies vaginal bleeding, fevers, chills, nausea, vomiting, diarrhea. Objective Data Objective Data Vital Signs: Vital Signs Temp Pulse Resp BP Pulse Ox O2 Del Method O2 Flow Rate 98.4 F 76 16 102/59 L 96 Room Air 4 05/05/22 07:26 05/05/22 07:26 05/05/22 07:26 05/05/22 07:26 05/05/22 07:26 05/05/22 07:26 05/04/22 14:51 Oxygen Flow Rate (L/min) 4 Oxygen Delivery Method Room Air Weight: 185 lb Body Mass Index (BMI) 31.7 Intake & Output: Intake and Output for Last 24 Hours 05/03/22 05/04/22 05/05/22 23:59 23:59 23:59 Intake Total 858.0 / 858.0 237.5 / 237.5 Balance 858.0 / 858.0 237.5 / 237.5 Lab / Micro Data Result Diagrams: 05/05/22 05:35 05/03/22 14:36 Labs: Laboratory Results - last 24 hr 05/04/22 10:15: POC Glucose 72 L 05/04/22 15:50: WBC 12.3 H, RBC 4.54, Hgb 12.9, Hct 39.5, MCV 87.0, MCH 28.4, MCHC 32.7, RDW Std Deviation 40.2, RDW Coeff of Mike 12.7, Plt Count 285, MPV 9.0 05/05/22 05:35: WBC 10.4, RBC 4.10 L, Hgb 11.5 L, Hct 35.8 L, MCV 87.3, MCH 28.0, MCHC 32.1, RDW Std Deviation 40.0, RDW Coeff of Mike 12.6, Plt Count 289, MPV 9.2 ROS Constitutional Constitutional: Reports systems reviewed and no addt'l complaints, except as documented Cardiovascular Cardiovascular: Denies chest pain, dizziness, dyspnea or irregular heart rhythm Respiratory/Chest Respiratory/Chest: Denies cough, pain on inspiration or shortness of breath at rest Gastrointestinal Gastrointestinal: Denies abdominal pain, nausea or vomiting Genitourinary Genitourinary: Denies burning urination Musculoskeletal Musculoskeletal: Denies muscle cramps, muscle spasms or muscle weakness Neurologic Neurologic: Denies confusion, dizziness, headache(s) or lack of coordination Psychiatric Psychiatric: Denies anxiety, behavioral changes or depression Physical Exam HEENT normocephalic Resp normal respiratory effort and normal air movement GI soft to palpation, non-tender and non-distended no CVA tenderness Extremity normal to inspection General Extremity: edema bilateral (trace ) Assessment & Plan (1) S/P vaginal hysterectomy: PLAN: patient is s/p TVH POD 1 1. routine ERAS protocol postop care- increase ambulation, encourage oral intake and oral control of pain. lovenox and scds for dvt prophylaxis, patient stable for discharge to home later today after has tried some oxycodone + zofran and feels better.
[2022-05-05] MEDS: Enoxaparin 40 MG/0.4 ML Syringe SC (10:58)
[2022-05-05] MEDS: Docusate Sodium 100 MG Capsule PO (10:58)
[2022-05-05] MEDS: Ondansetron ODT 4 MG Tablet PO (11:01)
[2022-05-05] MEDS: oxyCODONE 5 MG Tablet PO (11:01)
[2022-05-05 14:44] VITALS: BP 110/73; PULSE 68; RESP 16; TEMP 36.9; O2SAT 97
== END 2022-05-05 15:05 | disposition home or self-care (01) ==
LOC: MS3 05-05 09:17 → SDC 05-05 12:01 → MS3 05-05 12:01
PROVIDERS: Anesthesiology; Admitting Provider Obstetrics & Gynecology; PCP Internal Medicine; Referring Provider Obstetrics & Gynecology; Visit Provider Obstetrics & Gynecology
PROC: (CPT 58260; principal; 2022-05-04 11:25)
DX: N94.6 Dysmenorrhea, unspecified (principal); F17.290 Nicotine dependence, other tobacco product, uncomplicated; N80.03 Adenomyosis of the uterus; N88.8 Other specified noninflammatory disorders of cervix uteri; M76.32 Iliotibial band syndrome, left leg; E66.9 Obesity, unspecified; Z68.34 Body mass index [BMI] 34.0-34.9, adult
CPT/HCPCS: 58260; 00944; 36415; 80048; 82962; 83735; 85025; 85027; 86850; 86900; 86901; 88307; 96372; 96374; 96376; 99218; 99251; J7120; G0378; G0463; J2405; J3475

== ENCOUNTER → 2022-06-25 | Outpatient (CLI) | payer OTHER, SELFPAY ==
--- NOTE | 2022-06-25 09:59 | EKG12_ITS ---
Test Reason : CHECK UP Blood Pressure : / mmHG Vent. Rate : 067 BPM Atrial Rate : 067 BPM P-R Int : 134 ms QRS Dur : 080 ms QT Int : 412 ms P-R-T Axes : 079 058 066 degrees QTc Int : 435 ms Normal sinus rhythm Normal ECG Confirmed by MIRYAM RIVERA, PREMA ([id number]), social media editor ELMO VELASCO ([id number]) on 06/28/2022 10:41:42 AM Referred By: CHRISSY Confirmed By:PREMA WITT MD
[2022-06-25 11:54] LABS: Vitamin D,25 Hydroxy 24.4 ng/mL
[2022-06-25 12:01] LABS: ALB/GLOB Ratio 1.2 RATIO (0.9-2.4); AST(SGOT) 12 U/L (15-37); Alanine Aminotransfer ALT/SGPT 18 U/L (13-56); Albumin, Serum 3.7 g/dL (3.2-5.0); Alkaline Phosphatase 63 U/L (45-117); Anion Gap 5 (5-15); BUN 8 mg/dL (7-18); BUN/Creat Ratio 11.3 RATIO (10-20); Calcium,Total 8.7 mg/dL (8.5-10.1); Chloride 106 mmol/L (98-107); Cholesterol 162 mg/dL (200); Creatinine, Serum 0.71 mg/dL (0.55-1.02); EST Glomerular Filtration Rate 96 mL/min (>60); Est Glom Filt Rate - Afr Amer 116 mL/min (>60); Glucose 79 mg/dL (74-106); High Density Lipoprotein 60 mg/dL; Potassium 3.6 mmol/L (3.5-5.1); Protein, Total 6.7 g/dL (6.4-8.2); Sodium Level 140 mmol/L (136-145); Thyroid Stim Hormone (TSH) 1.41 uIU/mL (0.358-3.74); Triglycerides 71 mg/dL; Very Low Density Lipoprotein 14 mg/dL (5-40)
[2022-06-25 12:02] LABS: Hemoglobin A1c 4.8 % (3.8-5.6)
== END | disposition home or self-care (01) ==
LOC: PSN 09:56
PROVIDERS: PCP Internal Medicine; Visit Provider Obstetrics & Gynecology
DX: Z76.89 Persons encountering health services in other specified circumstances (principal); Z13.220 Encounter for screening for lipoid disorders; Z13.29 Encounter for screening for other suspected endocrine disorder; Z13.21 Encounter for screening for nutritional disorder
CPT/HCPCS: 36415; 80053; 80061; 82306; 83036; 84443; 93005

== ENCOUNTER → 2023-12-22 | Outpatient (CLI) | payer BC, SELFPAY ==
--- NOTE | 2023-12-22 15:41 | MRI_ITS ---
STUDY: MRI LEFT KNEE REASON FOR EXAM: Female, 43 years old. Left knee radiographs dated 12/05/2023. TECHNIQUE: Standardized fat and water weighted pulse sequences were obtained in all 3 orthogonal planes. COMPARISON: None. FINDINGS: Normal medial meniscus. Normal hyaline cartilage of the medial femorotibial compartment. Normal medial femoral condyle and tibial plateau. There is a minimal grade I MCL sprain with periligamentous edema (coronal T2 series 5 images 16-18). Normal distal semimembranosus, gracilis and semitendinosus tendons. Normal lateral meniscus. Normal hyaline cartilage of the lateral femorotibial compartment. Normal lateral femoral condyle and tibial plateau. Normal proximal tibiofibular articulation. Normal lateral collateral (fibular) ligament. Normal popliteus tendon. Normal biceps femoris tendon. Normal anterior cruciate ligament (ACL). Normal posterior cruciate ligament (PCL). There is focal chondromalacia along the patellar apex (axial T2 series 3 image 11) and femoral trochlear notch (sagittal T2 series 7 image 13). Congruent patellofemoral articulation. Normal medial and lateral patellar retinaculum. Normal quadriceps tendon. Normal patellar tendon. Normal Hoffa''s fat pad. There is a moderate volume joint effusion. There is no popliteal cyst. There is mild subcutaneous soft tissue edema along the anterior aspect of the knee. There is no acute fracture. MRI/Lower Ext Joint Only (Routine) IMPRESSION: Minimal grade I MCL sprain. Patellofemoral chondromalacia. Moderate joint effusion. Mild subcutaneous soft tissue edema along the anterior aspect of the knee. No discrete meniscal tear. Electronically Signed: Yosvany Werner MD at 9:45 EDT ,
== END | disposition home or self-care (01) ==
LOC: MRI 15:38
PROVIDERS: PCP Internal Medicine; Referring Provider Orthopaedic Surgery; Visit Provider Orthopaedic Surgery
DX: M25.562 Pain in left knee (principal)
CPT/HCPCS: 73721